=== PATIENT | male | born 1965 | race Two or more races ===

== ENCOUNTER 2025-01-26 10:28 | Outpatient (AMB) | payer MEDICARE, MEDICAID, SELFPAY ==
[2025-01-26 10:33] VITALS: BP 138/77; PULSE 52; O2SAT 97; BMI 34.6
--- NOTE | 2025-01-26 10:33 | A.OFFVIS_ITS ---
Vital Signs 01/26/25 10:33 Height 5 ft 10 in Weight 241 lb 6.499 oz BMI 34.6 BP 138/77 Blood Pressure Location Lt brachial Position Sitting Pulse 52 Pulse Source Doppler Pulse Oximetry (%) 97 Oxygen Delivery Method Room Air Intake Visit Reasons: Shortness of breath Business Operations Analyst Required: Yes Business Operations Analyst Name: Keila Jaylen Hdez Allergies No Known Allergies Allergy (Verified 01/26/25 10:41) HPI HPI Shortness of breath: Details: 59-year-old gentleman, former minimal smoker in his 20s quit 1988, referred for evaluation of pulmonary component of dyspnea on exertion. Patient complains shortness of breath when he climbs up stairs, but also waking up at night feeling out of breath needing to sit up associated with worsening lower extremity edema. He denies chest pains. Patient is also undergoing cardiac workup. He denies family history of lung disease. He denies exposure to industrial dusts. [facility] Social History (Updated 01/26/25 @ 10:47 by Keila Will [facility]) Patient Tobacco Use Status: Former Tobacco user Tobacco use type: Cigarette Review of Systems Const Denies daytime sleepiness, Denies excessive sweating, Denies fatigue, Denies fever(s), Denies lethargy, Denies malaise, Denies night sweats, Denies snoring and Denies weight loss Eyes Denies blurry vision and Denies itchy eyes ENT Denies nasal congestion, Denies post nasal drip, Denies sinus pain, Denies sinus pressure and Denies other ( Thrush) Card Denies chest pain, Reports pedal edema, Denies dyspnea, Reports dyspnea on exertion, Reports orthopnea and Reports paroxysmal nocturnal dyspnea Resp Denies cough, Denies hemoptysis, Denies excessive phlegm production, Denies dyspnea, Reports dyspnea on exertion, Denies snoring and Denies wheezing GI Denies abdominal pain and Denies heartburn Musc Denies myalgias, Denies arthralgias and Denies joint swelling Skin/Breast Denies rash Neuro Denies memory loss and Denies seizure-like activity Psych Denies abnormal sleep pattern, Denies anxiety and Denies memory loss Endo Denies excessive sweating, Denies fatigue and Denies heat intolerance Dinesh/Lymph Denies easy bruising Aller/Immun Denies itchy eyes, Denies seasonal rhinorrhea and Denies wheezing Physical Exam Vital Signs: Last Vital Signs Pulse 52 01/26/25 10:33 BP 138/77 01/26/25 10:33 Pulse Ox 97 01/26/25 10:33 Oxygen Delivery Method Room Air 01/26/25 10:33 BMI result Body Mass Index 34.6 Const General: no acute distress and alert Nutritional Appearance: obese Orientation/consciousness: Other orientation findings ( oriented) HEENT Head: Yes atraumatic Eyes General: appearance normal, both eyes and all related structures Sclerae: sclerae normal EOM: EOMs intact bilaterally Neck Neck: Yes supple Lymphatic: no lymphadenopathy noted Resp Effort & Inspection: normal respiratory effort and no use of accessory muscles Auscultation: clear to auscultation bilaterally Cardio Rate: regular rate Rhythm: regular rhythm Heart sounds: no gallops, no murmurs and no rubs Skin General skin exam: other ( warm) Extrem General: No clubbing, No cyanosis and Yes edema (1+ bilateral) Assessment & Plan Assessment & Plan (1) Dyspnea on exertion: Code(s): R06.09 - Other forms of dyspnea Category: Medical Plan: Unclear etiology, but appears to have mainly cardiac component. Patient is scheduled for 2D echocardiogram at [place] on 02/24/2025. Will await 2D echo results. Will obtain full PFT to evaluate pulmonary component. (2) Orthopnea: Code(s): R06.01 - Orthopnea Category: Medical Plan: Does appear to have significant orthopnea lower extremity edema, will start on empiric Lasix 40 mg daily. Orders: Orders PFT pulmonary function test Today R06.09 - Other forms of dyspnea Medications: New furosemide 40 mg PO QAM 30 tabs 6RF R06.09 - Other forms of dyspnea Coding Level of Care Code New Pt Level 4 (06029) Diagnoses Dyspnea on exertion R06.09 Orthopnea R06.01
--- OUTSIDE RECORDS SUMMARY | 2025-01-26 12:18 | XMS_ITS | Clinical Summary ---
Author Organization [facility] Address [address] [place] [address] Care Team Providers Care Newspaper Correspondent Name Role Phone Unavailable Primary Care Provider Unavailabl e Allergies Active Allergy Reactions Criticality Noted Date Comments Apixaban 07/02/2024 Medications Medication Sig Dispensed Refills Start Date End Date Status cyanocobalamin 500 MCG tablet Take 1 tablet (500 mcg total) by mouth daily. 0 Active lidocaine (LIDODERM) 5 % Place 1 patch onto the skin daily. Remove & Discard patch within 12 hours or as directed by MD 0 Active triamcinolone acetonide (KENALOG-40) 40 MG/ML injection Inject 1 mL (40 mg total) into the articular space once. 0 Active Cholecalciferol (Vitamin D) 50 MCG (2000 UT) CAPS Take by mouth. 0 Active amLODIPine (NORVASC) tablet 5 mg Take 1 tablet (5 mg total) by mouth daily. 0 Active escitalopram (LEXAPRO) tablet 10 mg Take 1 tablet (10 mg total) by mouth daily. 0 Active tiZANidine (ZANAFLEX) 4 MG tablet Take 1 tablet (4 mg total) by mouth every 6 (six) hours as needed. 0 Active Benadryl aqhr-Uopiev-Lvfpekat- Lidocaine Visc mouth wash 1:1:1:1 Swish and spit every 4 (four) hours as needed. 0 Active lisinopril-hydroCHLOR Othiazide (PRINZIDE,ZESTORETIC) tablet 20-25 mg Take 1 tablet by mouth daily. 0 Active cyclobenzaprine (FLEXERIL) 5 MG tablet Take 1 tablet (5 mg total) by mouth 3 (three) times a day as needed for muscle spasms. 0 Active Diclofenac Sodium 1 % GEL Apply topically. 0 Active pantoprazole (PROTONIX) 40 MG tablet Take 1 tablet (40 mg total) by mouth every morning on an empty stomach. 0 Active famotidine (PEPCID) 20 MG tablet Take 1 tablet (20 mg total) by mouth 2 (two) times a day. 0 Active celecoxib (CeleBREX) 200 MG capsule Take 1 capsule (200 mg total) by mouth daily. 0 Active clotrimazole-betameth asone (LOTRISONE) cream Apply topically 2 (two) times a day. 0 Active Social History Tobacco Use Types Packs/Day Years Used Date Smoking Tobacco: Never Assessed Sex and Gender Information Value Date Recorded Sex Assigned at Not on file Gender Identity Not on file Sexual Orientation Not on file Job Start Date Occupation Industry Not on file Not on file Not on file Last Filed Vital Signs Vital Sign Reading Time Taken Comments Blood Pressure 153/88 07/06/2024 11:00 AM EDT Pulse 64 07/06/2024 11:00 AM EDT Temperature 36.9 ??C (98.4 ??F) 07/06/2024 11:00 AM E DT Respiratory Rate - - Oxygen Saturation 95% 07/06/2024 11:00 AM EDT Inhaled Oxygen Concentration - - Weight 106.6 kg (235 lb) 07/06/2024 11:00 AM EDT Height 177.8 cm (5' 10 ) 07/06/2024 11:00 AM EDT Body Mass Index 33.72 07/06/2024 11:00 AM EDT Plan of Treatment Health Maintenance Due Date Last Done Comments Hepatitis C Screening 1964 COVID-19 Vaccine (#1) 02/18/1965 Depression Screening 1976 Preventative Health Evaluation 1982 DTap / Tdap / Td (1 - Tdap) 1983 Colon Cancer Screening (Colonoscopy) 2009 Shingrix-Zoster Vaccine (1 of 2) 2014 Influenza Vaccine (#1) 2024 RSV Adult > 60+ Yrs or Pregn ant (1 - 1-dose 75+ series) 2039 Hepatitis B Vaccines Aged Out No long er eligible based on patient's age to complete this topic Pneumococcal Vaccine Aged Out No long er eligible based on patient's age to complete this topic RSV Ped < 20 months Aged Out No longe r eligible based on patient's age to complete this topic
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
--- OUTSIDE RECORDS SUMMARY | 2025-01-26 12:18 | XMS_ITS | Encounter Summary ---
Author Organization [facility] Address [address] [place] [address] Care Team Providers Care Metal Mockup Maker Name Role Phone Bridgette Edward MD Primary Care Provider [phone] Reason for Visit * Therapy (Routine) - Authorized Specialty Diagnoses / Procedures Referred By Lorenza villeda Referred To Contact Physical Therapy Diagnoses Back pain Srini Jenkins MD 175 [facility] [address] [place] [address] Phone: tel: fax: [address] [address] Phone: tel: fax: Referral ID Status Reason Start Date Expiration Date Visits Requested Visits Authorized [id number] Authorized Specialty Services Required 09/07/2024 09/07/2025 20 6 Encounter Details Date Type Department Care Team (Late st Contact Info) Description 01/04/2025 10:30 AM EST Treatment [address] [address] Rosalva Jennings PT Bilateral hip pain (Primary Dx); Back pain, unspecified back location, unspecified back pain laterality, unspecified chronicity Social History Tobacco Use Types Packs/Day Years [...] AM EST documented as of this encounter Progress Notes * Rosalva Jennings PT - 01/04/2025 10:30 AM EST [facility] PHYSICAL THERAPY DISCHARGE NOTE Date: 01/04/2025 Visit Number: [id number] Patient Name: Jordan Phipps : 1965 Age: 59 y.o. Gender: male Diagnosis: ICD-10-CM ICD-9-CM 1. Bilateral hip pain M25.551 719.45 M25.552 2. Back pain, unspecified back location, unspecified back pain laterality, unspecified chronicity M54.9 724.5 Date of Onset: 09/15/2018 Date of Surgery: N/A Referring Provider: Srini Jenkins MD Insurance: Payor: MEDICARE / Plan: MEDICARE PART A & B / Product Type: Medicare / Patient Identified by: Rosalva Jennings PT Language: Speaks and understands Niuean as preferred language with no rolled seat trimmer required Medications: Current Outpatient Medications on File Prior to Visit Medication Sig Dispense Refill albuterol HFA (PROAIR HFA ; PROVENTIL HFA ; VENTOLIN HFA) 90 mcg/actuation inhaler Inhale 2 puffs by mouth every 4 (four) hours if needed for shortness of breath. 1 each 0 amLODIPine (NORVASC) 5 mg tablet TAKE 1 TABLET BY MOUTH EVERY DAY 90 tablet 1 celecoxib (CeleBREX) 200 mg capsule TAKE 1 CAPSULE BY MOUTH TWICE A DAY 60 capsule 1 cholecalciferol (VITAMIN D-3) 50 mcg (2,000 unit) tablet Take 1 Tablet by mouth daily. clotrimazole (LOTRIMIN) 1 % external solution Apply topically 2 (two) times a day. 30 mL 2 clotrimazole-betamethasone (LOTRISONE) 1-0.05 % cream APPLY LOCALLY TWICE A DAY cyanocobalamin (VITAMIN B-12) 500 mcg tablet TAKE 1 TABLET BY MOUTH EVERY DAY 90 tablet 3 cyclobenzaprine (FLEXERIL) 5 mg tablet Take 2 Tablets by mouth 3 times daily as needed for Muscle spasms. diclofenac (VOLTAREN) 1 % topical gel Apply 2 g topically 4 (four) times a day. 100 g 1 diphenhydrAMINE 12.5 mg/5 mL elixir 50 mg, aluminum-magnesium hydroxide- simethicone 400-400-40 mg/5mL suspension 20 mL, lidocaine 2 % solution 20 mL Swish and spit 10 mL every 4 hours as needed for Pain. Please mix the following in equal parts: MAALOX REGULAR STRENGTH 225-200-25 MG/5ML OR SUSP- 140cc LIDOCAINE VISCOUS 2 % MT SOLN - 140cc BENADRYL 12.5 MG/5ML OR ELIX - 140cc escitalopram (LEXAPRO) 10 mg tablet TAKE 1 TABLET BY MOUTH EVERY DAY IN THE MORNING famotidine (PEPCID) 20 mg tablet TAKE 1 TABLET BY MOUTH 2 TIMES DAILY NEEDED FOR HEARTBURN. 180 tablet 1 lisinopril-hydroCHLOROthiazide (PRINZIDE,ZESTORETIC) 20-25 mg per tablet Take 1 tablet by mouth 1 (one) time each day. 90 tablet 1 pantoprazole (PROTONIX) 40 mg EC tablet TAKE 1 TABLET BY MOUTH EVERY DAY potassium chloride (KLOR-CON) 10 mEq CR tablet TAKE 1 TABLET BY MOUTH EVERY DAY semaglutide (Wegovy) 0.25 mg/0.5 mL injection pen Inject 0.25 mg under the skin every 7 (seven) days. 4 mL 1 tiZANidine (ZANAFLEX) 4 mg tablet Take 2 Tablets by mouth at bedtime as needed for Muscle spasms. No current facility-administered medications on file prior to visit. Allergies: is allergic to apixaban. Precautions: Fall Risk: No SUBJECTIVE Subjective Report: Patient reports continued hip pain L>R. Pain since last re- eval is slightly worse. No real change in activity level this month. Increased pain possibly due to injections wearingoff. He is looking into different treatments like getting injections of his own cells into his hipsfor relief. This does cost a lot of money. He really wants to avoid hip surgery. Functional Limitations: Reported by Patient Last re-eval: limitations occasionally with walking, putting socks on, lifting weights, play grandkids Current: able to put socks on now without issue, walking distances still limited, has to be carefulwith turning/twisting Chart Reviewed: Yes Pain: Last re-eval: Current level of pain is rated a 7-8/10 left hip;Pain at worst over the past week is reported to be a 8/10 and at best is a 2/10 Current: Current level of pain 5-6/10; Pain at worst over the past week 6/10 and at best is a 0/10 OBJECTIVE Vitals: There were no vitals filed for this visit.; Gait: amb unassisted with mild antalgic pattern bilateral trendelenburg R>L, increased pelvic rotation on R (faster aguilar than initially) Palpation: tenderness anterior/lateral hip joint more on L HIP RANGE OF MOTION Right PROM Left PROM Comments Flexion (120 deg) 115 P >> 115 P 108 P>>105P Firm end feel and pain Extension (30 deg) NT NT Abduction (45 deg) 35 P>>32 P 35 P>>25 P Adduction (45 deg) NT NT External Rotation (45 deg) 45 P>>45 45>> 45 Internal Rotation (45 deg) 40 P>>40 P 35 P>> 35 P Hip Strength RIGHT LEFT COMMENTS Flexion 4+/5 >>4+/5 4+/5 >>4+/5 Extension NT/5 NT/5 Abduction 4+/5 >>4+/5 pain in left hip 4/5 P>> 4/5 P Adduction NT/5 NT/5 Internal Rotation 5/5 5/5 P External Rotation 4+/5>>5/5 5/5 TREATMENT INTERVENTION: Procedures: Nustep L5 x 6 min lower extremity See above objective measures Prone quad stretch strap (towel under knee) 3 x 30 sec Pain Reassessment: DISCHARGE SUMMARY ASSESSMENT: Reporting Period Start Date: 09/15/2024; End Date: 01/04/2025 Summary of Program/Progress to Date: Patient presents with bilateral hip pain L>R consistent with OA. He has attended about 3.5 months of PT. Since he first started PT, he did have good improvements in his pain, ROM, and strength. Since his last re-eval, no real change in symptoms and feels like pain is a little worse. He does havesome functional improvements, however. His hip ROM is about the same, slightly less on the left with abduction. His hip strength is about the same as well. Since his progress is at a plateau, he willbe discharged from formal PT. I encouraged him to continue his home exercise program to maintain his gains and also told him how weight loss can help. Patient Education: Education provided: continue home exercise program Education Provided To: Patient utilizing Explanation mode(s) of education Response to Education: Verbal Understanding GOALS LTG Improving First Mate Goals 1. Patient will be independent with home exercise program to maintain therapeutic gains.- MET 2. Patient will be able to walk with minimal to no pain.- PARTIALLY MET 3. Patient will be able to turn while standing or walking with minimal to no pain- NOT MET Senior Care Goals will be achieved in 8-12 weeks. STG Improving Short Term Goals 1. Initiate home exercise program.- MET 2. Pain will be improved by 2-3 points on VAS.- MET 3. Patient will improve hip strength by 1/3 grade on manual muscle testing.- MET 4. Patient will improve hip flexion ROM to 100 deg or more.- MET Short Term Goals will be achieved in 4 weeks. PLAN POC Development/Review: General Description as Follows: discharge to home exercise program : Participants: Patient Reasons Why Continued Therapy Is Not Recommended: No Skilled Therapy Required Recommended Consults: can check with hip specialist regarding other treatment options Equipment Recommended: none; Equipment Provided: none Total Treatment Time: 30 Modalities: Therapeutic procedures: Therapeutic Exercise Time Entry: 30 Documentation completed by Rosalva Jennings PT documented in this encounter Plan of Treatment Upcoming Encounters Date Type Department Care Team (Late st Contact Info) Description 02/24/2025 11:30 AM EDT Ancillary Procedure [facility] [address] [facility] [address] [place] [address] 03/29/2025 12:00 PM EDT Office Visit Internal Medicine - [place] 175 [facility] [address] [place] [address] Bridgette Edward MD 175 [facility] [address] [place] [phone] 05/05/2025 2:00 PM EDT Office Visit Bariatric Surgery - [place] [address] [place] [phone] Robert Mota MD [address] [place] [address] documented as of this encounter Goals Goal [...] PM EST) No Rosalva Jennings, PT Note: Senior Care Goals 1. Patient will be independent with home exercise program to maintain therapeutic gains.- NOT MET 2. Patient will be able to walk with minimal to no pain.- PARTIALLY MET 3. Patient will be able to turn while standing or walking with minimal to no pain- NOT MET Senior Care Goals will be achieved in 8-12 weeks. documented as of this encounter Visit Diagnoses Diagnosis Bilateral hip pain- Primary Pain in joint, pelvic region and thigh Back pain, unspecified back location, unspecified back pain laterality, unspecified chronicity documented in this encounter Care Teams Metal Mockup Maker Relationship Specialty Start Date End Date Bridgette Edward MD [facility] [place] [phone] PCP - General 12/11/22 documented as of this encounter
--- OUTSIDE RECORDS SUMMARY | 2025-01-26 12:18 | XMS_ITS | Encounter Summary ---
Author Organization [facility] Address [address] [place] [address] Care Team Providers Care Heat And Frost Insulator Helper Name Role Phone Bridgette Edward MD Primary Care Provider [phone] Reason for Visit * Therapy (Routine) - Authorized Specialty Diagnoses / Procedures Referred By Lorenza villeda Referred To Contact Physical Therapy Diagnoses Back pain Srini Jenkins MD 175 [facility] [address] [place] [address] Phone: tel: fax: [address] [address] Phone: tel: fax: Referral ID Status Reason Start Date Expiration Date Visits Requested Visits Authorized [id number] Authorized Specialty Services Required 09/07/2024 09/07/2025 20 6 Encounter Details Date Type Department Care Team (Late st Contact Info) Description 12/28/2024 10:30 AM EST Treatment [address] [address] Lowell Costa, SUPERVISOR SLATE SPLITTING Bilateral hip pain (Primary Dx) Social History Tobacco Use Types [...] as of this encounter Progress Notes * Lowell Costa PTA - 12/28/2024 10:30 AM EST [facility] - Outpatient PHYSICAL THERAPY DAILY TREATMENT NOTE - OP Date: 12/28/2024 Visit Number: 23 Patient Name: Jordan Phipps : 1965 Age: 59 y.o. Gender: male Diagnosis: ICD-10-CM ICD-9-CM 1. Bilateral hip pain M25.551 719.45 M25.552 Date of Onset/Surgery: 09/15/2018 Referring Provider: Srini Jenkins MD Insurance: Payor: MEDICARE / Plan: MEDICARE PART A & B / Product Type: Medicare / Patient Identified by: Lowell Costa PTA Language: Nigerian Medications: Current Outpatient Medications on File Prior [...] TAKE 1 TABLET BY MOUTH EVERY DAY tiZANidine (ZANAFLEX) 4 mg tablet Take 2 Tablets by mouth at bedtime as needed for Muscle spasms. [DISCONTINUED] celecoxib (CeleBREX) 200 mg capsule TAKE 1 CAPSULE BY MOUTH TWICE A DAY 60 capsule 1 [DISCONTINUED] lisinopril-hydroCHLOROthiazide (PRINZIDE,ZESTORETIC) 20-25 mg per tablet TAKE 1 TABLET BY MOUTH EVERY DAY No current facility-administered medications on file prior to visit. Allergies: is allergic to apixaban. Precautions: Fall risk: No Patient/Caregiver Goals: SUBJECTIVE Subjective Report: pt reports that his hips are very stiff today Chart Reviewed: Yes Pain 7/10 pain in both hips OBJECTIVE TREATMENT INTERVENTION: Nustep L5 x 6 min lower extremity Fig 4 Piriformis stretching 3 x 30 sec ea. Sidelying hip abduction 2 x 10 each 3 sec hold ea... not done today Supine bridge with blue theraband 2 x 10, 5 sec hold.. not done today Hip flexor stretch 3 x 20 sec hol (B) Lateral stepping with green tband x 3 10 feet each direction..not done today Shuttle squat 6 cords x 20...not done today Shuttle squats unilateral 5 cords 2 x 10 (B)..not done today (L) and (R) LE long axis distraction ASSESSMENT/Response to Treatment Fair. Some decrease in stiffness after distraction Patient Education: Education provided: Yes Education Provided To: Patient utilizing Explanation mode(s) of education Response to Education: Verbal Understanding PLAN POC Development/Review: No Change in the Plan of Care; Participants: Patient Total Treatment Time: 30 Man tech 15 Therapeutic procedures: 10 Documentation completed by Lowell Costa PTA documented in this encounter Plan of Treatment Upcoming Encounters Date Type Department Care Team (Late st Contact Info) Description 02/24/2025 11:30 AM EDT Ancillary Procedure [facility] - [address] [place] [address] 03/29/2025 12:00 PM EDT Office Visit Internal Medicine - [place] [address] [facility] [address] [place] [address] Bridgette Edward MD 175 [facility] 200 [place] [address] 05/05/2025 2:00 PM EDT Office Visit Bariatric Surgery - [place] 175 [facility] [address] [place] [address] Robert Mota MD 175 [facility] [address] [place] [address] documented as of this encounter Goals Goal [...] General Improving( 3:14 PM EST) No Rosalva Jennings PT Note: Screw Machine Operator Swiss Type Goals 1. Patient will be independent with home exercise program to maintain therapeutic gains.- NOT MET 2. Patient will be able to walk with minimal to no pain.- PARTIALLY MET 3. Patient will be able to turn while standing or walking with minimal to no pain- NOT MET Half-Way Goals will be achieved in 8-12 weeks. documented as of this encounter Visit Diagnoses Diagnosis Bilateral hip pain- Primary Pain in joint, pelvic region and thigh documented in this encounter Care Teams Heat And Frost Insulator Helper Relationship Specialty Start Date End Date Bridgette Edward MD [address] [place] [phone] PCP - General 12/11/22 documented as of this encounter
--- OUTSIDE RECORDS SUMMARY | 2025-01-26 12:18 | XMS_ITS | Clinical Summary ---
Author Organization [facility] Address [address] [place] [address] Care Team Providers Care Ribbon Sweatband Operator Name Role Phone Unavailable Primary Care Provider Unavailabl e Source Comments PLEASE NOTE, if this patient is a minor, it may be UNLAWFUL to discuss sensitive information that is contained in these records (such as FAMILY PLANNING, MENTAL HEALTH or SUBSTANCE ABUSE) with the minor patient's parent or other person without the patient's specific authorization.[facility] Allergies No known active allergies Medications TENS UNIT ELECTRODES (TENS UNITS ELECTRODES PADS) 2X2 Indications:Chr onic right-sided low back pain, with sciatica presence unspecified Dx: back pain. Wt: 252 lb, ht: 5'10 . Waist: 44 inches 1 Each 06/20/20 17 Active Miscellaneous Medical Supply miscIndications: Chronic right-sided low back pain, with sciatica presence unspecified by miscellaneous route once daily Dx: Chronic low back pain. Disp# one shower chair, no refills. Wt: 250 lb, ht 5'10 1 Each 06/20/20 17 Active loratadine (CLARITIN) 10 mg tabletIndication s:Allergy, initial encounter Take 1 Tab by mouth once daily as needed for allergies 30 Tab 5 06/20/20 17 Active fluticasone (FLONASE) 50 mcg/actuation nasal sprayIndications :Upper respiratory tract infection, unspecified type Place 1 [place] in both nostrils once daily 16 g 3 01/03/20 18 Active miscellaneous medical supply miscIndications: Essential hypertension by miscellaneous route once daily Dx: HTN. Digital portable blood pressure monitor machine, disp#1, no refills. 1 Each 03/05/20 18 Active melatonin 3 mg tabletIndication s:Insomnia, unspecified type Take 1 Tab by mouth nightly at bedtime as needed for sleep 30 Tab 5 07/21/20 18 Active raNITIdine HCl (ZANTAC) 150 mg tablet Take 1 Tab by mouth nightly at bedtime 30 Tab 11 07/21/20 18 Active clotrimazole-bet amethasone (LOTRISONE) 1-0.05 % creamIndications :Tinea pedis of both feet Apply topically 2 (two) times daily 45 g 3 10/07/20 18 Active hydrocortisone 2.5 % cream Apply topically 2 (two) times daily 30 g 3 10/07/20 18 Active buPROPion HCl (WELLBUTRIN XL) 150 mg 24 hr tablet TOME AGUS TABLETA TODOS LOS D? EN LA MA?CANDY 1 12/31/19 19 Active nabumetone (RELAFEN) 750 mg tabletIndication s:Chronic midline low back pain without sciatica Take 1 Tab by mouth 2 (two) times daily 60 Tab 11 01/06/20 19 Active hydrocortisone 1 % creamIndications :Hemorrhoids, unspecified hemorrhoid type Apply topically 2 (two) times daily 30 g 01/06/20 19 Active predniSONE (DELTASONE) 20 mg tabletIndication s:Acute midline low back pain without sciatica Take 1 Tab by mouth once daily 7 Tab 01/14/20 19 Active acetaminophen (TYLENOL 8 HOUR) 650 mg CR tabletIndication s:Acute midline low back pain without sciatica Take 1 Tab by mouth every 8 (eight) hours as needed for pain 60 Tab 1 01/14/20 19 Active lisinopril-hydro chlorothiazide (PRINZIDE,ZESTOR ETIC) 20-25 mg per tablet Take 1 Tab by mouth once daily 30 Tab 3 04/20/20 19 Active gemfibrozil (LOPID) 600 mg tablet Take 1 Tab by mouth 2 (two) times daily before a meal 60 Tab 3 05/10/20 19 Active Active Problems Problem Noted Date Diagnosed Date Allergic rhinitis 02/15/2019 High triglycerides 01/06/2019 Class 2 severe obesity due t o excess calories with serious comorbidity and body mass index (BMI) of 36.0 to 36.9 in adult ([facility]) 10/07/2018 Abnormal EKG 09/07/2018 PVC (premature ventricular contraction) 09/07/20 18 Bradycardia 09/07/2018 Left shoulder pain 04/28/2018 Overview (07/02/2018): Saw NEOE[facility]ie on 06-29-18 for left shoulder impingement syndrome with early adhesive capsulitis. Injection done. RTC in 3 months MRI done on 04-07-18 - shows motion degraded exam. Supraspinatus tendinopathy and mild tendinopathy of subscapularis with no evidence of rotator cuff tear. Moderate ac joint degenerative change. Numerous moles 07/21/2017 Essential hypertension 12/27/2016 Gastroesophageal reflux disease without esophagi tis 12/27/2016 Allergy 12/27/2016 Insomnia 12/27/2016 Anxiety and depression 12/27/2016 Tinea pedis of both feet 12/27/2016 IBS (irritable bowel syndrome) 12/27/2016 Hypothyroidism 12/27/2016 Chronic right-sided low back pain 12/27/2016 Acute midline low back pain without sciatica Family History Medical History Relation Name Comments Alzheimer's Disease Mother Relation Name Status Comments Mother Social History Tobacco Use Types Packs/Day Years Used Date Smoking Tobacco: Former Smokeless Tobacco: Former Alcohol Use Standard Drinks/Week Comments No 0 (1 standard drink = 0.6 oz pur e alcohol) Social Connections Answer Date Recorded Social Connections and Isolation 0 06/27/2019 Financial Resource Strain Answer Date R ecorded Financial Resource Strain 0 2018 Stress Answer Date Recorded Stress 0 06/27/2019 Physical Activity Answer Date Recorded Physical Activity 0 06/27/2019 Food Insecurity Answer Date Recorded Food 0 06/27/2019 Transportation Needs Answer Date Record ed Transportation 0 06/27/2019 Housing Stability Answer Date Recorded Housing 0 06/27/2019 Safety and Environment Answer Date Eladio rded Safety 0 06/27/2019 Utilities Answer Date Recorded Utilities 0 06/27/2019 Employment Answer Date Recorded Employment 0 06/27/2019 Sex and Gender Information Value Date Recorded Sex Assigned at Male 01/02/2018 12:04 PM PST Legal Sex Male 7:21 AM PST Gender Identity Male 01/02/2018 12:04 PM PST Sexual Orientation Straight 01/02/2018 12 :04 PM PST Occupation Industry Job Start Date Job End Date unemployed Not on file Not on file Not on file Last Filed Vital Signs Vital Sign Reading Time Taken Comments Blood Pressure 154/80 02/16/2019 2:17 PM EDT Pulse 60 02/16/2019 2:17 PM EDT Temperature 36.8 ??C (98.2 ??F) 02/16/2019 2:17 PM ED T Respiratory Rate 19 02/16/2019 2:17 PM EDT Oxygen Saturation 98% 10/07/2018 10:46 AM EST Inhaled Oxygen Concentration - - Weight 119.7 kg (264 lb) 02/16/2019 2:17 PM EDT Height 177.8 cm (5' 10 ) 01/13/2019 11:09 AM EDT Body Mass Index 37.88 01/13/2019 11:09 AM EDT Plan of Treatment Not on file Insurance [place] MEDICAID Member Subscriber Plan / Payer ( fective 2016-Present) Name:Jordan Ortega Relation to Subscriber:Self Name:JORDAN ORTEGA Payer ID:[id number] Group ID:Not on file Type:Medicaid Address: [facility] [id number] [place] [id number] [place] [address] Member Subscriber Plan / Payer (Ef fective 2019-Present) Name:Jordan Ortega Relation to Subscriber:Self Name:Jordan Ortega Payer ID:[id number] Group ID:Not on file Type:Indemnity Address: [address] [place] [address]
== END 2025-01-26 11:03 | disposition home or self-care (01) ==
LOC: HO.HPS 10:29
PROVIDERS: PCP Internal Medicine; Visit Provider Internal Medicine Pulmonary Disease
DX: R06.09 Other forms of dyspnea (principal)
CPT/HCPCS: 94060; 94727; 94729; 99204

== ENCOUNTER 2025-01-26 14:11 | Outpatient (REF) | payer MEDICARE, MEDICAID, SELFPAY ==
--- NOTE | 2025-01-26 14:00 | PFT_ITS ---
Indication: Dyspnea Spirometry [FEV1 to FVC 82%; FEV1 3.63 L; FVC 4.41 L. no significant response to bronchodilators noted.] Lung Volumes [Total capacity 80% predicted; expiratory reserve volume 31% predicted] Diffusion Capacity [DLCO 87% predicted] Comparisons [none] Interpretation [No obstructive nor restrictive ventilatory defects identified. No significant response to bronchodilators noted. Lung volumes are normal except for decrease in the expiratory reserve volume secondary to an elevated BMI. Diffusing capacity is within normal limits. Clinical correlation warranted.] MTDD
[2025-01-26 14:47] VITALS: PULSE 62; O2SAT 98
--- OUTSIDE RECORDS SUMMARY | 2025-01-26 17:06 | XMS_ITS | Encounter Summary ---
Author Organization [facility] Address [address] [place] [address] Care Team Providers Care Pantry Cook Name Role Phone China Reece PA-C Primary Care Provider + Bridgette Edward MD Primary Care Provider [phone] Reason for Visit * Reason Onset Date Comments TEST RESULTS 04/18/2022 Encounter Details Date Type Department Care Team Description 04/18/2022 Telephone Internal Medicine - [address], [address] [place] [address] China Reece PA-C [address] [place] [phone] TEST RESULTS Social History Tobacco Use Types Packs/Day Years Used Date Smoking Tobacco: Former Cigarettes Q uit: 11/03/1988 Smokeless Tobacco: Never Alcohol Use Standard Drinks/Week Comments No 0 (1 standard drink = 0.6 oz pur e alcohol) Alcohol Habits Answer Date Recorded How often do you have a drink containing alcohol ? Never 07/07/2020 How many drinks containing a lcohol do you have on a typical day when you are drinking? Not asked How often do you have six or more drinks on one occasion? Not asked Sex Assigned at Date Recorded Not on file Job Start Date Occupation Industry Not on file Not on file Not on file COVID-19 Exposure Response Date Recorded In the last 10 days, have yo u been in contact with someone who was confirmed or suspected to have Coronavirus/COVID-19? No / Unsure 04/08/2022 3:00 PM EDT documented as of this encounter Miscellaneous Notes * Telephone Encounter - Nasima Lopez M.A. - 04/19/2022 1:15 PM EDT I spoke with patient and informed him of the results. Also, informed him to stop the anticoagulant Xarelto 20 mg and booked patient for a physical exam for 08/05/2022 * Telephone Encounter - China Reece PA-C - 04/18/2022 3:35 PM EDT Ultrasound left leg done 04/09/2022 no evidence of DVT or reflux in the left lower extremity. This was ordered via vascular Dr. Molina. At this time I think it is safe for him to stop anticoagulantXarelto 20 mg daily once his prescription runs out. Thank you. * Telephone Encounter - Nasima Lopez M.A. - 04/18/2022 1:51 PM EDT China, please add result note * Telephone Encounter - Aspen Marie - 04/18/2022 10:51 AM EDT Inform patient: ANY URGENT OR ABNORMAL RESULTS WIILL RESULT IN A CALL BACK TO THE PATIENT BETI. Type of test: : Ultrasound Date test was performed: 04-09-22 Where was the test performed: [facility] Who ordered this test?: China Reece Is the doctor here today?: YES Can the message wait until the doctor returns?: NO IF PATIENT'S PCP IS NOT IN INSTRUCT PATIENT THAT THEY WILL RECEIVE A CALL BACK WHEN THE PCP IS IN THE OFFICE NEXT. documented in this encounter Plan of Treatment Not on file documented as of this encounter Visit Diagnoses Not on filedocumented in this encounter Care Teams Pantry Cook Relationship Specialty Start Date End Date China Reece PA-C [address] [place] [phone] PCP - General Internal Medicine 06/02/20 12/10/22 Bridgette Edward MD [address] [place] [phone] PCP - General Internal Medicine 12/11/22 documented as of this encounter
--- OUTSIDE RECORDS SUMMARY | 2025-01-26 17:06 | XMS_ITS | Encounter Summary ---
Author Organization [facility] Address [address] [place] [address] Care Team Providers Care Correctional Probation Officer Name Role Phone Grabiel Leonardo MD Primary Care Provider [phone] China Reece PA-C Primary Care Provider + Bridgette Edward MD Primary Care Provider [phone] Encounter Details Date Type Department Care Team Description 03/31/2019 Walk In Clinic Visit Medical Records [address] [place] [address] Social History Tobacco Use Types Packs/Day Years Used Date Smoking Tobacco: Former Smokeless Tobacco: Never Alcohol Habits Answer Date Recorded How often [...] file Not on file Not on file documented as of this encounter Plan of Treatment Not on file documented as of this encounter Visit Diagnoses Not on filedocumented in this encounter Care Teams Correctional Probation Officer Relationship Specialty Start Date End Date Grabiel Leonardo MD PCP - General Internal Medicine 12/11/18 06/01/20 China Reece PA-C [address] [place] [phone] PCP - General Internal Medicine 06/02/20 12/10/22 Bridgette Edward MD [address] [place] [phone] PCP - General Internal Medicine 12/11/22 documented as of this encounter
--- OUTSIDE RECORDS SUMMARY | 2025-01-26 17:06 | XMS_ITS | Encounter Summary ---
Author Organization [facility] Address [address] [place] [address] Care Team Providers Care Restaurant Worker Name Role Phone Grabiel Leonardo MD Primary Care Provider [phone] China Reece PA-C Primary Care Provider + Bridgette Edward MD Primary Care Provider [phone] Reason for Visit * Reason Onset Date Comments Provider Call Back 11/23/2019 Encounter Details Date Type Department Care Team Description 11/23/2019 Telephone Internal Medicine - [address], [address] [place], [place] [id number] Bridgette Edward MD [address] [place] [phone] Provider Call Back Social History Tobacco Use Types Packs/Day Years [...] on file documented as of this encounter Miscellaneous Notes * Telephone Encounter - Leydi Munguia M.A. - 11/26/2019 11:43 AM EST Left a voicemail for patient to call back the office * Telephone Encounter - Bridgette Edward MD - 11/26/2019 4:12 AM EST It was a mistake, ask him to ignore * Telephone Encounter - Humaira Lopez M.A. - 11/24/2019 9:11 AM EST Please advise * Telephone Encounter - Ade Bai - 11/23/2019 11:13 AM EST Patient states Dr Edward ordered another pet scan he wants to know why Please call patient documented in this encounter Plan of Treatment Not on file documented as of this encounter Visit Diagnoses Not on filedocumented in this encounter Care Teams Restaurant Worker Relationship Specialty Start Date End Date Grabiel Leonardo MD PCP - General Internal Medicine 12/11/18 06/01/20 hCina Reece PA-C [address] [place] [phone] PCP - General Internal Medicine 06/02/20 12/10/22 Bridgette Edward MD [address] [place] [phone] PCP - General Internal Medicine 12/11/22 documented as of this encounter
--- OUTSIDE RECORDS SUMMARY | 2025-01-26 17:06 | XMS_ITS | Encounter Summary ---
Author Organization [facility] Address [address] [place] [address] Care Team Providers Care Signal Operator Name Role Phone Grabiel Leonardo MD Primary Care Provider [phone] China Reece PA-C Primary Care Provider + Bridgette Edward MD Primary Care Provider [phone] Encounter Details Date Type Department Care Team Description 12/24/2019 Release of Information Medical Records [address] [place] [address] Abstract, Provider Social History Tobacco Use Types Packs/Day Years [...] on filedocumented in this encounter Care Teams Signal Operator Relationship Specialty Start Date End Date Grabiel Leonardo MD PCP - General Internal Medicine 12/11/18 06/01/20 China Reece PA-C [address] [place] [phone] PCP - General Internal Medicine 06/02/20 12/10/22 Bridgette Edward MD [address] [place] [phone] PCP - General Internal Medicine 12/11/22 documented as of this encounter
--- OUTSIDE RECORDS SUMMARY | 2025-01-26 17:06 | XMS_ITS | Encounter Summary ---
Author Organization [facility] Address [address] [place] [address] Care Team Providers Care Aquaculturist Name Role Phone Graibel Lenoardo MD Primary Care Provider [phone] China Reece PA-C Primary Care Provider + Bridgette Edward MD Primary Care Provider [phone] Encounter Details Date Type Department Care Team Description 11/19/2019 Telephone Internal Medicine - [address], [address] [place] [address] Grabiel Leonardo MD [address] [place] [address] Social History Tobacco Use Types Packs/Day Years [...] encounter Miscellaneous Notes * Telephone Encounter - Humaira Lopez M.A. - 11/19/2019 12:56 PM EST ----- Message from Bridgette Edward MD sent at 11/19/2019 11:47 AM EST ----- PET scan is normal documented in this encounter Plan of Treatment Not on file documented as of this encounter Visit Diagnoses Not on filedocumented in this encounter Care Teams Aquaculturist Relationship Specialty Start Date End Date Grabiel Leonardo MD PCP - General Internal Medicine 12/11/18 06/01/20 China Reece PA-C [address] [place] [phone] PCP - General Internal Medicine 06/02/20 12/10/22 Bridgette Edward MD [address] [place] [phone] PCP - General Internal Medicine 12/11/22 documented as of this encounter
--- OUTSIDE RECORDS SUMMARY | 2025-01-26 17:06 | XMS_ITS | Encounter Summary ---
Author Organization [facility] Address [address] [place] [address] Care Team Providers Care French Folder Name Role Phone China Reece PA-C Primary Care Provider + Bridgette Edward MD Primary Care Provider [phone] Reason for Visit * Reason Comments E-prescribe Rx Request Encounter Details Date Type Department Care Team Description 03/27/2022 Refill Internal Medicine - [address], [address] [place] [address] China Reece PA-C [address] [place] [phone] E-prescribe Rx Request Social History Tobacco Use Types Packs/Day Years [...] encounter Miscellaneous Notes * Telephone Encounter - Anette Nowak M.A. - 03/28/2022 12:18 PM EDT BP Readings from Last 3 Encounters: 12/14/21 120/82 12/01/21 122/80 04/24/21 134/80 Lab Results Component Value Date NA 143 02/20/2022 K 3.5 02/20/2022 CO2 29 02/20/2022 CL 107 02/20/2022 BUN 19 02/20/2022 CREAT 0.93 02/20/2022 GLU 101 02/20/2022 ALB 3.6 02/20/2022 SGOT 22 02/20/2022 SGPT 20 02/20/2022 TBILI 0.6 02/20/2022 ALKPHOS 87 02/20/2022 TP 6.4 02/20/2022 CA 9.4 02/20/2022 GFR > 60 02/20/2022 * Telephone Encounter - Aminata Frey - 03/27/2022 8:45 AM EDT BALDEMAR 12/14/21 NOV 04/08/22 documented in this encounter Plan of Treatment Not on file documented as of this encounter Visit Diagnoses Diagnosis Essential hypertension Unspecified essential hypertension documented in this encounter Care Teams French Folder Relationship Specialty Start Date End Date China Reece PA-C [address] [place] [phone] PCP - General Internal Medicine 06/02/20 12/10/22 Bridgette Edward MD [address] [place] [phone] PCP - General Internal Medicine 12/11/22 documented as of this encounter
--- OUTSIDE RECORDS SUMMARY | 2025-01-26 17:06 | XMS_ITS | Clinical Summary ---
Author Organization [facility] Address [address] [place] [address] Care Team Providers Care Protective Signal Repairer Name Role Phone Unavailable Primary Care Provider [...] respiratory tract infection, unspecified type Place 1 [place]atte in both nostrils once daily 16 g [...] (BMI) of 36.0 to 36.9 in adult ([facility]) 10/07/2018 Abnormal EKG 09/07/2018 PVC (premature ventricular [...] Plan of Treatment Not on file Insurance [place] MEDICAID Member Subscriber Plan / Payer ( fective 2016-Present) Name:Jordan Ortega Relation to Subscriber:Self Name:JORDAN ORTEGA Payer ID:[id number] Group ID:Not on file Type:Medicaid Address: [facility] [id number] [place] [id number] [place] [address] Member Subscriber Plan / Payer (Ef fective 2019-Present) Name:Jordan Ortega Relation to Subscriber:Self Name:Jordan Ortega Payer ID:[id number] Group ID:Not on file Type:Indemnity Address: [address] [place] [address]
--- OUTSIDE RECORDS SUMMARY | 2025-01-26 17:06 | XMS_ITS | Encounter Summary ---
Author Organization [facility] Address [address] [place] [address] Care Team Providers Care General Operator Name Role Phone Grabiel Leonardo MD Primary Care Provider [phone] China Reece PA-C Primary Care Provider + Bridgette Edward MD Primary Care Provider [phone] Encounter Details Date Type Department Care Team Description 08/10/2019 Telephone Internal Medicine - [address], [address] [place] [address] Grabiel Leonardo MD [address] [place] [address] Social History Tobacco Use Types Packs/Day Years [...] on filedocumented in this encounter Care Teams General Operator Relationship Specialty Start Date End Date Grabiel Leonardo MD PCP - General Internal Medicine 12/11/18 06/01/20 China Reece PA-C [address] [place] [phone] PCP - General Internal Medicine 06/02/20 12/10/22 Bridgette Edward MD [address] [place] [phone] PCP - General Internal Medicine 12/11/22 documented as of this encounter
--- OUTSIDE RECORDS SUMMARY | 2025-01-26 17:06 | XMS_ITS | Encounter Summary ---
Author Organization [facility] Address [address] [place] [address] Care Team Providers Care Actuary Name Role Phone China Reece PA-C Primary Care Provider + Bridgette Edward MD Primary Care Provider [phone] Reason for Visit * Reason Comments E-prescribe Rx Request Encounter Details Date Type Department Care Team Description 05/09/2022 Refill Internal Medicine - [address], [address] [place] [address] China Reece PA-C [address] [place] [phone] E-prescribe Rx Request Social History Tobacco [...] encounter Miscellaneous Notes * Telephone Encounter - Carmine Gonzalez M.A. - 05/10/2022 9:48 AM EDT Rx last filled on 04/08/22 w/ 0 refills rx pended fwd to china * Telephone Encounter - Aminata Frey - 05/10/2022 9:47 AM EDT Flor 04/08/22 Nov 08/05/22 documented in this encounter Plan of Treatment Not on file documented as of this encounter Visit Diagnoses Diagnosis Chronic bilateral low back pain with bilateral sciatica documented in this encounter Care Teams Actuary Relationship Specialty Start Date End Date China Reece PA-C [address] [place] [phone] PCP - General Internal Medicine 06/02/20 12/10/22 Bridgette Edward MD [address] [place] [phone] PCP - General Internal Medicine 12/11/22 documented as of this encounter
--- OUTSIDE RECORDS SUMMARY | 2025-01-26 17:06 | XMS_ITS | Clinical Summary ---
Author Organization [facility] Address [address] [place] [address] Care Team Providers Care Concrete Inspector Name Role Phone Bridgette Edward MD Primary Care Provider [phone] Allergies Active Allergy Reactions Severity Noted Date Comments Apixaban Diarrhea 06/23/2023 Medications Medication Sig Dispensed Refills Start Date End Date Status Cholecalciferol (Vitamin D) 50 MCG (1999) CapIndications:Vitami n D insufficiency Take 1 Capsule by mouth daily. 90 Capsule 3 04/08/2022 Active escitalopram (LEXAPRO) 10 MG tablet TAKE 1 TABLET BY MOUTH EVERY DAY IN THE MORNING 0 06/04/2022 Active Mix equal parts:MAALOX SUSP/LIDOCAINE VISCOUS 2 % MT SOLN/BENADRYL 12.5MG/5ML Swish and spit 10 mL every 4 hours as needed for Pain. Please mix the following in equal parts: MAALOX REGULAR STRENGTH 225-200-25 MG/5ML OR SUSP- 140cc LIDOCAINE VISCOUS 2 % MT SOLN - 140cc BENADRYL 12.5 MG/5ML OR ELIX - 140cc 420 mL 0 08/19/2022 Active Cholecalciferol (Vitamin D) 50 MCG (1999) Tab Take 1 Tablet by mouth daily. 90 Tablet 3 08/10/2023 Active vitamin B-12 (CYANOCOBALAMIN) 500 MCG tablet Take 1 Tablet by mouth daily for 360 days. 90 Tablet 3 11/19/2023 Active pantoprazole (PROTONIX) 40 MG tablet TAKE 1 TABLET BY MOUTH EVERY DAY 90 Tablet 1 01/13/2024 Active potassium chloride SA (K-DUR,KLOR-CON) 10 MEQ tablet TAKE 1 TABLET BY MOUTH EVERY DAY 90 Tablet 1 02/18/2024 Active Diclofenac Sodium 1 % Gel APPLY 2 GMS TOPICALLY 4 TIMES A DAY NEEDED FOR LEFT ELBOW PAIN. 100 g 1 03/17/2024 Active triamcinolone acetonide (KENALOG-40) 40 MG/ML injection Inject 1 mL into the articular space once for 1 dose. 1 mL 0 03/19/2024 Active clotrimazole-betameth asone (LOTRISONE) cream APPLY LOCALLY TWICE A DAY 30 g 0 04/12/2024 Active cyclobenzaprine (FLEXERIL) 5 MG tabletIndications:Mus trina strain Take 2 Tablets by mouth 3 times daily as needed for Muscle spasms. 20 Each 0 04/20/2024 Active lidocaine (LIDODERM) 5 %Indications:Bilatera l hip pain,Muscle strain Place 1 Patch onto the skin every 24 hours for 28 days. Apply for no more than 12 hours in any 24 hour period. 28 Patch 3 04/20/2024 Active famotidine (PEPCID) 20 MG tabletIndications:Gas troesophageal reflux disease without esophagitis TAKE 1 TABLET BY MOUTH 2 TIMES DAILY NEEDED FOR HEARTBURN. 60 Tablet 5 05/11/2024 Active celecoxib (CELEBREX) 200 MG capsule TAKE 1 CAPSULE BY MOUTH TWICE A DAY 60 Capsule 1 06/24/2024 Active lisinopril-hydrochlor othiazide (PRINZIDE,ZESTORETIC) 20-25 MG per tabletIndications:Ess ential hypertension TAKE 1 TABLET BY MOUTH EVERY DAY 90 Tablet 1 07/02/2024 Active amlodipine (NORVASC) 5 MG tabletIndications:Ess ential hypertension TAKE 1 TABLET BY MOUTH EVERY DAY 90 Tablet 1 07/07/2024 Active tizanidine (ZANAFLEX) 4 MG tabletIndications:Chr onic bilateral low back pain with bilateral sciatica Take 2 Tablets by mouth at bedtime as needed for Muscle spasms. 180 Tablet 5 08/04/2024 Active Active Problems Problem Noted Date Primary osteoarthritis of right hip 06/04 Primary osteoarthritis of left hip 06/23 History of deep venous throm bosis (DVT) of distal vein of left lower extremity 06/23/2023 Bilateral hip joint arthritis 07/04/2022 Hematuria 04/24/2021 Cervical radiculopathy 12/06/2020 Degenerative disc disease, cervical 01/2021 Cervical spinal stenosis 12/06/2020 Allergic rhinitis 02/15/2019 Class 2 obesity with body mass index (BM I) of 35.0 to 35.9 in adult 10/07/2018 Bradycardia 09/07/2018 PVC (premature ventricular contraction) 09/07/2018 Left shoulder pain 04/28/2018 Overview: Overview: Saw [facility] on 06-29-18 for left shoulder impingement syndrome with early adhesive capsulitis. Injection done. RTC in 3 months MRI done on 04-07-18 - shows motion degraded exam. Supraspinatus tendinopathy and mild tendinopathy of subscapularis with no evidence of rotator cuff tear. Moderate ac joint degenerative change. Numerous moles 07/21/2017 Anxiety and depression 12/27/2016 Essential hypertension 12/27/2016 Gastroesophageal reflux disease without esophagitis 12/27/2016 IBS (irritable bowel syndrome) 7 Insomnia 12/27/2016 Chronic right-sided low back pain 2016 Tinea pedis of both feet 12/27/2016 Resolved Problems Problem Noted Date Resolved Date Hypothyroidism 12/27/2016 02/15/2019 Hypothyroidism 12/27/2016 07/07/2020 Family History Medical History Relation Name Comments CAD Father Alzheimers Disease Mother Abnormal Heartbeat Sister Relation Name Status Comments Father (Age 81) Mother (Age 75) Sister Alive Social History Tobacco Use Types Packs/Day Years Used Date Smoking Tobacco: Former Cigarettes Q uit: 11/03/1988 Smokeless Tobacco: Never Tobacco Cessation:Counseling Given: Not Answered Alcohol Use Standard Drinks/Week Comments No 0 [...] Sign Reading Time Taken Comments Blood Pressure 174/92 08/04/2024 8:07 AM EDT Pulse 41 08/04/2024 8:07 AM EDT Temperature 36 ??C (96.8 ??F) 08/04/2024 8:07 AM EDT Respiratory Rate 15 08/18/2023 1:14 PM EDT Oxygen Saturation 98% 08/04/2024 8:07 AM EDT Inhaled Oxygen Concentration - - Weight 106.1 kg (233 lb 12.8 oz) 08/04/2024 8:07 AM EDT Height 177.8 cm (5' 10 ) 08/04/2024 8:07 AM EDT Body Mass Index 33.55 08/04/2024 8:07 AM EDT Plan of Treatment Health Maintenance Due Date Last Done Comments Covid-19 Vaccine (#1) [birth year]18/1966 DTAP/TDAP/TD (1 - Tdap) 1983 COLON CANCER SCREENING 2014 SHINGLES VACCINE (1 of 2) 2014 DEPRESSION SCREEN 05/12/2024 05/12/2023 INFLUENZA (#1) 2024 BMI CHECK/ADVISE 11/03/2024 08/04/2024, , 03/22/2024, Additional history exists BASELINE HEALTH EXAM 40-64 08/04/202608/04, 08/08/2023, 05/12/2023, Additional history exists CHOLESTEROL SCREENING 08/04/2029 08/04/2024 , 11/20/2023, 08/08/2023, Additional history exists PNEUMOCOCCAL VACCINE FOR HIG H RISK PATIENTS (#1) 2029 HEPATITIS C SCREENING Completed 08/04/2024 Care Teams Concrete Inspector Relationship Specialty Start Date End Date Bridgette Edward MD PCP - General Internal Medicine 12/11/22
--- OUTSIDE RECORDS SUMMARY | 2025-01-26 17:06 | XMS_ITS | Encounter Summary ---
Author Organization [facility] Address [address] [place] [address] Care Team Providers Care Wad Blanking Press Adjuster Name Role Phone China Reece PA-C Primary Care Provider + Bridgette Edward MD Primary Care Provider [phone] Reason for Visit * Reason Onset Date Comments refill request 04/04/2022 Encounter Details Date Type Department Care Team Description 04/04/2022 Refill Pulmonology - [place] [address] [facility] [address] [place] [phone] China Reece PA-C [address] [place] [phone] refill request Social History Tobacco Use Types Packs/Day Years [...] encounter Miscellaneous Notes * Telephone Encounter - Deonna Lopez - 04/04/2022 2:02 PM EDT BP Readings from Last 3 Encounters: 12/14/21 120/82 10/03/21 122/80 04/24/21 134/80 * Telephone Encounter - Martha Yoo - 04/04/2022 9:35 AM EDT BALDEMAR 12/14/21 NOV 04/08/22 documented in this encounter Plan of Treatment Not on file documented as of this encounter Visit Diagnoses Diagnosis Chronic bilateral low back pain with bilateral sciatica documented in this encounter Care Teams Wad Blanking Press Adjuster Relationship Specialty Start Date End Date China Reece PA-C [address] [place] [phone] PCP - General Internal Medicine 06/02/20 12/10/22 Bridgette Edward MD [address] [place] [phone] PCP - General Internal Medicine 12/11/22 documented as of this encounter
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
--- OUTSIDE RECORDS SUMMARY | 2025-01-26 17:06 | XMS_ITS | Encounter Summary ---
Author Organization [facility] [address] Address [address] [place] [address] Care Team Providers Care Grades 1 Thru 5 Teacher Name Role Phone Bridgette Edward MD Primary Care Provider [phone] Reason for Visit * Therapy (Routine) - Authorized Specialty Diagnoses / Procedures Referred By Lorenza villeda Referred To Contact Physical Therapy Diagnoses Back pain Srini Jenkins MD 175 [facility] [address] [place] [address] Phone: tel: fax: [address] [address] Phone: tel: fax: Referral ID Status Reason Start Date Expiration Date Visits Requested Visits Authorized [id number] Authorized Specialty Services Required 09/07/2024 09/07/2025 20 6 Encounter Details Date Type Department Care Team (Late st Contact Info) Description 01/04/2025 10:30 AM EST Treatment [address] [address] Rosalva Jennings PT Bilateral hip [...] Jennings PT - 01/04/2025 10:30 AM EST [facility] PHYSICAL THERAPY DISCHARGE NOTE Date: 01/04/2025 Visit [...] Rosalva Jennings PT Language: Speaks and understands Venezuelan as preferred language with no aerial photograph interpreter required Medications: Current Outpatient Medications on File [...] to Education: Verbal Understanding GOALS LTG Improving Paraffin Plant Sweater Operator Goals 1. Patient will be independent with home exercise program to maintain therapeutic gains.- MET 2. Patient will be able to walk with minimal to no pain.- PARTIALLY MET 3. Patient will be able to turn while standing or walking with minimal to no pain- NOT MET Nursing Home Goals will be achieved in 8-12 weeks. [...] Description 02/24/2025 11:30 AM EDT Ancillary Procedure [facility] - [facility] [address] [facility] [address] [place] [address] 03/29/2025 12:00 PM EDT Office Visit Internal Medicine - [place] 175 [facility] [address] [place] [address] Bridgette Edward MD 175 [facility] [address] [place] [phone] 05/05/2025 2:00 PM EDT Office Visit Bariatric Surgery - [place] [address] [place] [phone] Robert Mota MD [address] [place] [address] documented as of this encounter Goals Goal [...] PM EST) No Rosalva Jennings, PT Note: Nursing Home Goals 1. Patient will be independent with home exercise program to maintain therapeutic gains.- NOT MET 2. Patient will be able to walk with minimal to no pain.- PARTIALLY MET 3. Patient will be able to turn while standing or walking with minimal to no pain- NOT MET Nursing Home Goals will be achieved in 8-12 weeks. documented as of this encounter Visit Diagnoses Diagnosis Bilateral hip pain- Primary Pain in joint, pelvic region and thigh Back pain, unspecified back location, unspecified back pain laterality, unspecified chronicity documented in this encounter Care Teams Grades 1 Thru 5 Teacher Relationship Specialty Start Date End Date Bridgette Edward MD [facility] [address] [place] [phone] PCP - General 12/11/22 documented as of this encounter
--- OUTSIDE RECORDS SUMMARY | 2025-01-26 17:06 | XMS_ITS | Encounter Summary ---
Author Organization [facility] Address [address] [place] [address] Care Team Providers Care Ultrasound Supervisor Name Role Phone Grabiel Leonardo MD Primary Care Provider [phone] China Reece PA-C Primary Care Provider + Bridgette Edward MD Primary Care Provider [phone] Reason for Visit * Reason Comments E-prescribe Rx Request Encounter Details Date Type Department Care Team Description 06/01/2020 Refill Internal Medicine - [address], [address] [place] [address] Grabiel Leonardo MD [address] [place] [address] E-prescribe Rx Request Social History Tobacco Use [...] encounter Miscellaneous Notes * Telephone Encounter - Lety Alaniz M.A. - 06/01/2020 3:21 PM EDT Lab Results Component Value Date NA 145 02/02/2020 K 3.6 02/02/2020 CO2 28 02/02/2020 CL 110 02/02/2020 BUN 18 02/02/2020 CREAT 0.85 02/02/2020 GLU 101 02/02/2020 ALB 3.1 02/02/2020 SGOT 25 02/02/2020 SGPT 17 02/02/2020 TBILI 0.9 02/02/2020 ALKPHOS 64 02/02/2020 TP 6.1 02/02/2020 CA 8.7 02/02/2020 GFR > 60 02/02/2020 BP Readings from Last 5 Encounters: 04/05/20 136/80 03/17/20 128/80 02/03/20 (!) 154/82 01/12/20 120/62 12/15/19 110/70 Last refill 12/03/19.map * Telephone Encounter - Edwina Miller - 06/01/2020 2:39 PM EDT Patient would like script to be: E-PRESCRIBED/FAXED TO PHARMACY WHEN WAS THE PATIENT'S LAST APPOINTMENT IN ADULT MEDICINE? 05/25/20 WHEN WAS THE LAST TIME THE PATIENT SAW THEIR PCP? Same as above Does patient have an upcoming appointment? Yes 08/11/20 (THE MEDICATION REQUESTED IS ON THE MED LIST ABOVE) All of the medications requested were on the CURRENT MEDS list Did you check the Pharmacy information above?: YES Patient wants: 90 -day supply Is this a mail order prescription request ? NO If the refill is from a FAXED refill request what is the RX # listed on the fax? N/A Patients current insurance carrier is: [place] / [place] / Product Type: [place]ARE [id number] documented in this encounter Plan of Treatment Not on file documented as of this encounter Visit Diagnoses Not on filedocumented in this encounter Care Teams Ultrasound Supervisor Relationship Specialty Start Date End Date Grabiel Leonardo MD PCP - General Internal Medicine 12/11/18 06/01/20 China Reece PA-C [address] [place] [address] PCP - General Internal Medicine 06/02/20 12/10/22 Bridgette Edward MD [address] [place] [address] PCP - General Internal Medicine 12/11/22 documented as of this encounter
--- OUTSIDE RECORDS SUMMARY | 2025-01-26 17:06 | XMS_ITS | Encounter Summary ---
Author Organization [facility] Address [address] [place] [address] Care Team Providers Care Donor Processor Name Role Phone China Reece PA-C Primary Care Provider + Bridgette Edward MD Primary Care Provider [phone] Encounter Details Date Type Department Care Team Description 02/15/2021 Transmission Technician Report Medical Records [address] [place] [address] Talat Thomas PA-C 175 [facility] [address] [place] [address] Social History Tobacco Use Types Packs/Day Years [...] Exposure Response Date Recorded In the last month, have you been in contact with someone who was confirmed or suspected to have Coronavirus / COVID-19? No / Unsure 01/30/2021 12:35 PM EDT documented as of this encounter Plan of Treatment Not on file documented as of this encounter Visit Diagnoses Not on filedocumented in this encounter Care Teams Donor Processor Relationship Specialty Start Date End Date China Reece PA-C [address] [place] [phone] PCP - General Internal Medicine 06/02/20 12/10/22 Bridgette Edward MD [address] [place] [address] PCP - General Internal Medicine 12/11/22 documented as of this encounter
--- OUTSIDE RECORDS SUMMARY | 2025-01-26 17:06 | XMS_ITS | Encounter Summary ---
Author Organization [facility] Address [address] [place] [address] Care Team Providers Care Celluloid Trimmer Name Role Phone Grabiel Leonardo MD Primary Care Provider [phone] China Reece PA-C Primary Care Provider + Bridgette Edward MD Primary Care Provider [phone] Encounter Details Date Type Department Care Team Description 12/29/2018 Release of Information Medical Records [address] [place] [address] Abstract, Provider Social History Tobacco Use Types [...] on filedocumented in this encounter Care Teams Celluloid Trimmer Relationship Specialty Start Date End Date Grabiel Leonardo MD PCP - General Internal Medicine 12/11/18 06/01/20 China Reece PA-C [address] [place] [phone] PCP - General Internal Medicine 06/02/20 12/10/22 Bridgette Edward MD [address] [place] [phone] PCP - General Internal Medicine 12/11/22 documented as of this encounter
--- OUTSIDE RECORDS SUMMARY | 2025-01-26 17:06 | XMS_ITS | Encounter Summary ---
Author Organization [facility] Address [address] [place] [address] Care Team Providers Care Design Quality Engineer Name Role Phone Grabiel Leonardo MD Primary Care Provider [phone] China Reece PA-C Primary Care Provider + Bridgette Edward MD Primary Care Provider [phone] Reason for Visit * Reason Comments E-prescribe Rx Request Encounter Details Date Type Department Care Team Description 03/25/2020 Refill Internal Medicine - [address], [address] [place], [place] [address] Bridgette Edward MD [address] [place] [phone] E-prescribe Rx Request Social History Tobacco [...] encounter Miscellaneous Notes * Telephone Encounter - Tiara SawyerP.NJudit - 03/29/2020 3:11 PM EDT Lab Results Component Value Date NA 145 02/02/2020 K 3.6 02/02/2020 CO2 28 02/02/2020 CL 110 02/02/2020 BUN 18 02/02/2020 CREAT 0.85 02/02/2020 GLU 101 02/02/2020 CA 8.7 02/02/2020 GFR > 60 02/02/2020 * Telephone Encounter - Katty Clifford - 03/29/2020 12:35 PM EDT Patient would like script to be: E-PRESCRIBED/FAXED TO PHARMACY WHEN WAS THE PATIENT'S LAST APPOINTMENT IN ADULT MEDICINE? 02.28.2020 WHEN WAS THE LAST TIME THE PATIENT SAW THEIR PCP? Same as above Does patient have an upcoming appointment? No-no answer, no voicemail documented x2 (Please verify telephone contact #'s at next phone call) (THE MEDICATION REQUESTED IS ON THE MED LIST ABOVE) All of the medications requested were on the CURRENT MEDS list Did you check the Pharmacy information above?: YES Patient wants: 30 -day supply Is this a mail order prescription request ? NO If the refill is from a FAXED refill request what is the RX # listed on the fax? N/A Patients current insurance carrier is: [place] / [place] / Product Type: MEDICARE [id number] documented in this encounter Plan of Treatment Not on file documented as of this encounter Visit Diagnoses Not on filedocumented in this encounter Care Teams Design Quality Engineer Relationship Specialty Start Date End Date Grabiel Leonardo MD PCP - General Internal Medicine 12/11/18 06/01/20 China Reece PA-C [address] [place] [phone] PCP - General Internal Medicine 06/02/20 12/10/22 Bridgette Edward MD [address] [place] [phone] PCP - General Internal Medicine 12/11/22 documented as of this encounter
--- OUTSIDE RECORDS SUMMARY | 2025-01-26 17:06 | XMS_ITS | Encounter Summary ---
Author Organization [facility] Address [address] [place] [address] Care Team Providers Care Verifying Specialist Name Role Phone China Reece PA-C Primary Care Provider + Bridgette Edward MD Primary Care Provider [phone] Reason for Visit * Reason Comments E-prescribe Rx Request Encounter Details Date Type Department Care Team Description 10/01/2021 Refill Internal Medicine - [address], [address] [place] [address] China Reece PA-C [address] [place] [phone] E-prescribe Rx Request Social History Tobacco [...] have Coronavirus / COVID-19? No / Unsure 10/03/2021 10:55 AM EST documented as of this encounter Miscellaneous Notes * Telephone Encounter - China Reece PA-C - 10/08/2021 1:43 PM EST Refilled a month of Xarelto 20 mg daily, was supposed to have repeat ultrasound of his left leg to check for resolution of DVT. Please schedule, order placed. * Telephone Encounter - Deonna Lopez - 10/08/2021 1:24 PM EST BP Readings from Last 3 Encounters: 10/03/21 122/80 04/24/21 134/80 04/05/21 (!) 140/78 * Telephone Encounter - Aminata Frey - 10/08/2021 1:18 PM EST Flor 08/30/21 Nov 10/25/21 documented in this encounter Plan of Treatment Not on file documented as of this encounter Results * EXTREMITY VEINS STUDY, UNILATERAL (10/11/2021 1:21 PM EST) 10/11/2021 1:57 PM EST Impressions HÉCTOR JIANG OTHER EXTERNAL - 10/11/2021 2:01 PM EST IMPRESSION: Findings suggestive of ??chronic/residual deep vein thrombosis in the popliteal vein. ??Nonvisualization of the peroneal vein. Narrative HÉCTOR JIANG OTHER EXTERNAL - 10/11/2021 2:01 PM EST LEFT LOWER EXTREMITY VENOUS ULTRASOUND HISTORY: Deep vein thrombosis in the left femoral and popliteal veins. ??No prior studies or reports are available for ??comparison. COMMENT: There is partial compressibility and color filling of the popliteal vein. ??Peroneal vein was not visualized. ??The left common femoral, uppermost deep femoral, greater saphenous, femoral, gastrocnemius, posterior tibial veins were imaged, showing no filling defects or noncompressible segments. ??Doppler shows normal phasic flow and normal response to calf compression. ?? Procedure Note Elaine Sommers MD - 10/11/2021 LEFT LOWER EXTREMITY VENOUS ULTRASOUND HISTORY: Deep vein thrombosis in the left femoral and popliteal veins. Noprior studies or reports are available for comparison. COMMENT: There is partial compressibility and color filling of thepopliteal vein. Peroneal vein was not visualized. The left common femoral, uppermost deep femoral,greater saphenous, femoral, gastrocnemius, posterior tibial veins were imaged, showing nofilling defects or noncompressible segments. Doppler shows normal phasic flow and normalresponse to calf compression. IMPRESSION IMPRESSION: Findings suggestive of chronic/residual deep vein thrombosisin the popliteal vein. Nonvisualization of the peroneal vein. China Reece PA-C ULTRASOUND [place] OTHER EXTERNAL documented in this encounter Visit Diagnoses Diagnosis Acute embolism and thrombosis of left femoral vein (HCC) Acute embolism and thrombosis of left popliteal vein (HCC) Acute embolism and thrombosis of left femoral vein (HCC) Acute embolism and thrombosis of left popliteal vein (HCC) documented in this encounter Care Teams Verifying Specialist Relationship Specialty Start Date End Date China Reece PA-C [address] [place] [phone] PCP - General Internal Medicine 06/02/20 12/10/22 Bridgette Edward MD [address] [place] [phone] PCP - General Internal Medicine 12/11/22 documented as of this encounter
--- OUTSIDE RECORDS SUMMARY | 2025-01-26 17:06 | XMS_ITS | Encounter Summary ---
Author Organization [facility] Address [address] [place] [address] Care Team Providers Care Dishroom Attendant Name Role Phone Grabiel Leonardo MD Primary Care Provider [phone] China Reece PA-C Primary Care Provider + Bridgette Edward MD Primary Care Provider [phone] Reason for Visit * Reason Onset Date Comments Provider Call Back 03/26/2019 Encounter Details Date Type Department Care Team Description 03/26/2019 Telephone Internal Medicine - [address], [address] [place] [address] Grabiel Leonardo MD [address] [place] [address] Provider Call Back Social History Tobacco Use [...] encounter Miscellaneous Notes * Telephone Encounter - Emma Lopez M.A. - 03/26/2019 3:45 PM EDT Patient stated he has an appointment with the physiatry on April 20 and they told him to keep calling to see if someone cancel befored that day. He sent his apoligy to Dr. Leonardo he miss understood the DrJudit * Telephone Encounter - Grabiel Leonardo MD - 03/26/2019 3:32 PM EDT No prednisone. He's been referred to brand representative. * Telephone Encounter - Luisa Gee - 03/26/2019 2:24 PM EDT Patient calling - stating that he was asking for prednisone and the provider informed him that he would send something better Please review and call patient at [phone] (home) * Telephone Encounter - Grabiel Leonardo MD - 03/26/2019 2:20 PM EDT He is on nabumetone which is an NSAID All of them have side effects. he wants to continue same medication. * Telephone Encounter - Katty Clifford - 03/26/2019 11:12 AM EDT Caller requesting call back from provider: Is the caller the patient? YES If caller is not the patient, what is the callers name? N/A Callers relationship to patient? N/A If person calling is not the patient themselves, is there a verbal release in FYI or permanent comments for this person: YES Reason for call back: Patient was seen 03/25/2019 discussed trying an alternative to nabumetone (RELAFEN) 750 MG tablet medicine for back pain with Dr. Leonardo, same Rx was sent to pharmacy Caller offered to speak with the nurse for assistance: YES Response: Patient offered to speak with nurse for assistance and patient agreed. Message forwarded to nurse. documented in this encounter Plan of Treatment Not on file documented as of this encounter Visit Diagnoses Not on filedocumented in this encounter Care Teams Dishroom Attendant Relationship Specialty Start Date End Date Grabiel Leonardo MD PCP - General Internal Medicine 12/11/18 06/01/20 China Reece PA-C [address] [place] [phone] PCP - General Internal Medicine 06/02/20 12/10/22 Bridgette Edward MD [address] [place] [phone] PCP - General Internal Medicine 12/11/22 documented as of this encounter
--- OUTSIDE RECORDS SUMMARY | 2025-01-26 17:06 | XMS_ITS | Encounter Summary ---
Author Organization [facility] Address [address] [place] [address] Care Team Providers Care Core Winder Name Role Phone China Reece PA-C Primary Care Provider + Bridgette Edward MD Primary Care Provider [phone] Reason for Visit * Reason Comments E-prescribe Rx Request Encounter Details Date Type Department Care Team Description 09/11/2022 Refill Internal Medicine - [address], [address] [place] [address] China Reece PA-C [address] [place] [phone] E-prescribe Rx Request Social History Tobacco [...] suspected to have Coronavirus/COVID-19? No / Unsure 08/19/2022 12:39 PM EDT documented as of this encounter Miscellaneous Notes * Telephone Encounter - Diony Martin - 09/11/2022 2:29 PM EST Flor 08/19/2022 Nov 11/05/2022 * Telephone Encounter - Gail Mccall - 09/11/2022 11:31 AM EST Last ordered: 5 months ago by China Reece PA-C Last refill: 07/01/2022 Last ordered: 1 month ago by China Reece PA-C for tizanidine refusing because tizanidine (ZANAFLEX) 4 MG tablet 60 Tablet 2 08/05/2022 Pending audrey BP please send tizanidine if you believe a refill may be needed BP Readings from Last 3 Encounters: 08/19/22 (!) 160/90 08/05/22 (!) 148/72 04/08/22 132/80 documented in this encounter Plan of Treatment Not on file documented as of this encounter Visit Diagnoses Diagnosis Essential hypertension Unspecified essential hypertension Chronic bilateral low back pain with bilateral sciatica documented in this encounter Care Teams Core Winder Relationship Specialty Start Date End Date China Reece PA-C [address] [place] [phone] PCP - General Internal Medicine 06/02/20 12/10/22 Bridgette Edward MD [address] [place] [phone] PCP - General Internal Medicine 12/11/22 documented as of this encounter
--- OUTSIDE RECORDS SUMMARY | 2025-01-26 17:06 | XMS_ITS | Encounter Summary ---
Author Organization [facility] Address [address] [place] [address] Care Team Providers Care High Climber Name Role Phone Grabiel Leonardo MD Primary Care Provider [phone] China Reece PA-C Primary Care Provider + Bridgette Edward MD Primary Care Provider [phone] Encounter Details Date Type Department Care Team Description 12/06/2019 Telephone Internal Medicine - [address], [address] [place] [address] Grabiel Leonardo MD [address] [place] [address] Social History Tobacco Use Types Packs/Day Years [...] Telephone Encounter - Humaira Lopez M.A. - 12/06/2019 8:46 AM EST ----- Message from Grabiel Leonardo MD sent at 12/03/2019 3:02 PM EST ----- Labs are looking fine ,potassium is little low, increase fluid intake. Fruits like bananas ,oranges documented in this encounter Plan of Treatment Not on file documented as of this encounter Visit Diagnoses Not on filedocumented in this encounter Care Teams High Climber Relationship Specialty Start Date End Date Grabiel Leonardo MD PCP - General Internal Medicine 12/11/18 06/01/20 China Reece PA-C [address] [place] [phone] PCP - General Internal Medicine 06/02/20 12/10/22 Bridgette Edward MD [address] [place] [phone] PCP - General Internal Medicine 12/11/22 documented as of this encounter
--- OUTSIDE RECORDS SUMMARY | 2025-01-26 17:06 | XMS_ITS | Encounter Summary ---
Author Organization [facility] Address [address] [place] [address] Care Team Providers Care Lingo Cleaner Name Role Phone Grabiel Leonardo MD Primary Care Provider [phone] China Reece PA-C Primary Care Provider + Bridgette Edward MD Primary Care Provider [phone] Encounter Details Date Type Department Care Team Description 04/30/2019 Visual Associate Report Medical Records [address] [place] [address] Malissa Arora Social History Tobacco Use Types Packs/Day Years [...] on filedocumented in this encounter Care Teams Lingo Cleaner Relationship Specialty Start Date End Date Grabiel Leonardo MD PCP - General Internal Medicine 12/11/18 06/01/20 China Reece PA-C [address] [place] [phone] PCP - General Internal Medicine 06/02/20 12/10/22 Bridgette Edward MD [address] [place] [phone] PCP - General Internal Medicine 12/11/22 documented as of this encounter
--- OUTSIDE RECORDS SUMMARY | 2025-01-26 17:06 | XMS_ITS | Encounter Summary ---
Author Organization [facility] Address [address] [place] [address] Care Team Providers Care Water Regulator And Valve Repairer Name Role Phone Grabiel Leonardo MD Primary Care Provider [phone] China Reece PA-C Primary Care Provider + Bridgette Edward MD Primary Care Provider [phone] Reason for Visit * Reason Comments E-prescribe Rx Request MELOXICAM 7.5 MG TABLET Encounter Details Date Type Department Care Team Description 10/28/2019 Refill Adult Med - [place] [address] [place], [place] [phone] Grabiel Leonardo MD [address] [place], [place] [phone] E-prescribe Rx Request (MELOXICAM 7.5 MG TABLET) Social History Tobacco Use Types Packs/Day Years [...] Telephone Encounter - Lety Alaniz M.A. - 10/29/2019 12:14 PM EST Patient last seen by Dr. Edward 10/15/2019. Please refill. * Telephone Encounter - Xuan Moss - 10/29/2019 8:44 AM EST Patient would like script to be: E-PRESCRIBED/FAXED TO PHARMACY WHEN WAS THE PATIENT'S LAST APPOINTMENT IN ADULT MEDICINE? 06/04/[address] Leonardo and 10/15/[address] Edward WHEN WAS THE LAST TIME THE PATIENT SAW THEIR PCP? Same as above Does patient have an upcoming appointment? No-unable to reach left [facility] to call for appointment due to refill request. (THE MEDICATION REQUESTED IS ON THE MED [...] / [place] / Product Type: MEDICARE [id number] documented in this encounter Plan of Treatment Not on file documented as of this encounter Visit Diagnoses Not on filedocumented in this encounter Care Teams Water Regulator And Valve Repairer Relationship Specialty Start Date End Date Grabiel Leonardo MD PCP - General Internal Medicine 12/11/18 06/01/20 China Reece PA-C [address] [place] [phone] PCP - General Internal Medicine 06/02/20 12/10/22 Bridgette Edward MD [address] [place] [phone] PCP - General Internal Medicine 12/11/22 documented as of this encounter
--- OUTSIDE RECORDS SUMMARY | 2025-01-26 17:06 | XMS_ITS | Encounter Summary ---
Author Organization [facility] Address [address] [place] [address] Care Team Providers Care Senior Business Consultant Name Role Phone China Reece PA-C Primary Care Provider + Bridgette Edward MD Primary Care Provider [phone] Encounter Details Date Type Department Care Team Description 05/28/2021 [facility] Medical Records [address] [place] [address] [place] Social History Tobacco Use Types Packs/Day Years [...] on filedocumented in this encounter Care Teams Senior Business Consultant Relationship Specialty Start Date End Date China Reece PA-C [address] [place] [phone] PCP - General Internal Medicine 06/02/20 12/10/22 Bridgette Edward MD [address] [place] [phone] PCP - General Internal Medicine 12/11/22 documented as of this encounter
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
--- OUTSIDE RECORDS SUMMARY | 2025-01-26 17:06 | XMS_ITS | Encounter Summary ---
Author Organization [facility] Address [address] [place] [address] Care Team Providers Care Drywall Hanger Framer Name Role Phone Grabiel Leonardo MD Primary Care Provider [phone] China Reece PA-C Primary Care Provider + Bridgette Edward MD Primary Care Provider [phone] Reason for Visit * Reason Onset Date Comments TEST RESULTS 02/21/2020 Labs Encounter Details Date Type Department Care Team Description 02/21/2020 Telephone Internal Medicine - [place] [address] [facility], [address] [place], [place] [phone] Bridgette Edward MD [address] [place] [phone] TEST RESULTS (Labs) Social History Tobacco Use Types Packs/Day Years [...] encounter Miscellaneous Notes * Telephone Encounter - Edwina Miller - 02/21/2020 11:40 AM EDT Inform patient: ANY URGENT OR ABNORMAL RESULTS WIILL RESULT IN A CALL BACK TO THE PATIENT BETI. Type of test: :Labs Date test was performed: 02/02/20 Where was the test performed: [address] [facility] [address], [place], [place] Who ordered this test?: Dr. Edward Is the doctor here today?: NO Can the message wait until the doctor returns?: YES IF PATIENT'S PCP IS NOT IN INSTRUCT PATIENT THAT THEY WILL RECEIVE A CALL BACK WHEN THE PCP IS IN THE OFFICE NEXT. documented in this encounter Plan of Treatment Not on file documented as of this encounter Visit Diagnoses Not on filedocumented in this encounter Care Teams Drywall Hanger Framer Relationship Specialty Start Date End Date Grabiel Leonardo MD PCP - General Internal Medicine 12/11/18 06/01/20 China Reece PA-C [address] [place] [phone] PCP - General Internal Medicine 06/02/20 12/10/22 Bridgette Edward MD [address] [place] [phone] PCP - General Internal Medicine 12/11/22 documented as of this encounter
--- OUTSIDE RECORDS SUMMARY | 2025-01-26 17:06 | XMS_ITS | Encounter Summary ---
Author Organization [facility] Address [address] [place] [address] Care Team Providers Care Sack Maker Name Role Phone China Reece PA-C Primary Care Provider + Bridgette Edward MD Primary Care Provider [phone] Encounter Details Date Type Department Care Team Description 06/22/2021 [facility] Medical Records [address] [place] [address] Social History Tobacco Use Types Packs/Day Years [...] on filedocumented in this encounter Care Teams Sack Maker Relationship Specialty Start Date End Date China Reece PA-C [address] [place] [phone] PCP - General Internal Medicine 06/02/20 12/10/22 Bridgette Edward MD [address] [place] [phone] PCP - General Internal Medicine 12/11/22 documented as of this encounter
--- OUTSIDE RECORDS SUMMARY | 2025-01-26 17:06 | XMS_ITS | Encounter Summary ---
Author Organization [facility] Address [address] [place] [address] Care Team Providers Care Play Back Operator Name Role Phone Bridgette Edward MD Primary Care Provider [phone] Encounter Details Date Type Department Care Team Description 07/21/2024 Orders Only Medical Records [address] [place] [address] Elvin Dixon MD Social History Tobacco Use Types Packs/Day Years [...] on file documented as of this encounter Procedures Procedure Name Priority Date/Time Associated Diagnosis Comments OUTSIDE IMAGING Routine 07/20/2024 documented in this encounter Results * OUTSIDE IMAGING (07/20/2024) Elvin Dixon MD RADIOLOGY documented in this encounter Visit Diagnoses Not on filedocumented in this encounter Care Teams Play Back Operator Relationship Specialty Start Date End Date Bridgette Edward MD PCP - General Internal Medicine 12/11/22 documented as of this encounter
--- OUTSIDE RECORDS SUMMARY | 2025-01-26 17:06 | XMS_ITS | Encounter Summary ---
Author Organization [facility] Address [address] [place] [address] Care Team Providers Care Mechanical Operator Name Role Phone China Reece PA-C Primary Care Provider + Bridgette Edawrd MD Primary Care Provider [phone] Encounter Details Date Type Department Care Team Description 12/29/2020 Hospital Medical Records [address] [place] [address] Ludwin Tyson MD, PHD Social History Tobacco Use Types Packs/Day Years [...] have Coronavirus / COVID-19? No / Unsure 12/19/2020 2:27 PM EST documented as of this encounter Plan of Treatment Not on file documented as of this encounter Visit Diagnoses Not on filedocumented in this encounter Care Teams Mechanical Operator Relationship Specialty Start Date End Date China Reece PA-C [address] [place] [phone] PCP - General Internal Medicine 06/02/20 12/10/22 Bridgette Edward MD [address] [place] [phone] PCP - General Internal Medicine 12/11/22 documented as of this encounter
--- OUTSIDE RECORDS SUMMARY | 2025-01-26 17:06 | XMS_ITS | Encounter Summary ---
Author Organization [facility] Address [address] [place] [address] Care Team Providers Care Blood Bank Technologist Name Role Phone Grabiel Leonardo MD Primary Care Provider [phone] China Reece PA-C Primary Care Provider + Bridgette Edward MD Primary Care Provider [phone] Reason for Visit * Reason Onset Date Comments medication problems 02/21/2020 Encounter Details Date Type Department Care Team Description 02/21/2020 Telephone Internal Medicine - [address], [address] [place] [address] Grabiel Leonardo MD [address] [place] [address] medication problems Social History Tobacco Use Types Packs/Day Years [...] Telephone Encounter - Edwina Miller - 02/21/2020 11:36 AM EDT Who is calling? The patient Name of the medication Zantac What is the specific problem or interaction? Pharmacy is no longer carrying this medication. Can you please prescribe something else and send it to [place], [place]. Call the patient once something is sent. If the patient is having a problem with taking the med - how long has the problem been going on? N/A documented in this encounter Plan of Treatment Not on file documented as of this encounter Visit Diagnoses Not on filedocumented in this encounter Care Teams Blood Bank Technologist Relationship Specialty Start Date End Date Grabiel Leonardo MD PCP - General Internal Medicine 12/11/18 06/01/20 China Reece PA-C [address] [place] [phone] PCP - General Internal Medicine 06/02/20 12/10/22 Bridgette Edward MD [address] [place] [phone] PCP - General Internal Medicine 12/11/22 documented as of this encounter
--- OUTSIDE RECORDS SUMMARY | 2025-01-26 17:06 | XMS_ITS | Encounter Summary ---
Author Organization [facility] Address [address] [place] [address] Care Team Providers Care Pin Sorter And Bagger Name Role Phone China Reece PA-C Primary Care Provider + Bridgette Edward MD Primary Care Provider [phone] Reason for Visit * Reason Onset Date Comments refill request 10/25/2022 Encounter Details Date Type Department Care Team Description 10/25/2022 Telephone Internal Medicine - [address], [address] [place] [address] China Reece PA-C [address] [place] [phone] refill request Social History Tobacco Use [...] suspected to have Coronavirus/COVID-19? No / Unsure 10/07/2022 1:25 PM EST documented as of this encounter Miscellaneous Notes * Telephone Encounter - Shoaib Harley - 10/25/2022 3:23 PM EST Pt has been made aware of medication been sent to pharmnacy * Telephone Encounter - China Reece PA-C - 10/25/2022 11:23 AM EST Is he already out of this is I filled it 10/07/2022? * Telephone Encounter - Carmine Gonzalez M.A. - 10/25/2022 9:36 AM EST Fwd to pcp rx pended * Telephone Encounter - Diann Gan - 10/25/2022 9:31 AM EST [place] 10/07/22 NOV 11/05/22 documented in this encounter Plan of Treatment Not on file documented as of this encounter Visit Diagnoses Not on filedocumented in this encounter Care Teams Pin Sorter And Bagger Relationship Specialty Start Date End Date China Reece PA-C [address] [place] [phone] PCP - General Internal Medicine 06/02/20 12/10/22 Bridgette Edward MD [address] [place] [phone] PCP - General Internal Medicine 12/11/22 documented as of this encounter
--- OUTSIDE RECORDS SUMMARY | 2025-01-26 17:06 | XMS_ITS | Encounter Summary ---
Author Organization [facility] Address [address] [place] [address] Care Team Providers Care Felt Cutter Name Role Phone China Reece PA-C Primary Care Provider + Bridgette Edward MD Primary Care Provider [phone] Encounter Details Date Type Department Care Team Description 06/13/2021 [facility] Medical Records [address] [place] [address] Social History Tobacco Use Types Packs/Day Years [...] on filedocumented in this encounter Care Teams Felt Cutter Relationship Specialty Start Date End Date China Reece PA-C [address] [place] [phone] PCP - General Internal Medicine 06/02/20 12/10/22 Bridgette Edward MD [address] [place] [phone] PCP - General Internal Medicine 12/11/22 documented as of this encounter
--- OUTSIDE RECORDS SUMMARY | 2025-01-26 17:06 | XMS_ITS | Encounter Summary ---
Author Organization [facility] Address [address] [place] [address] Care Team Providers Care Resident Caregiver Name Role Phone China Reece PA-C Primary Care Provider + Bridgette Edward MD Primary Care Provider [phone] Encounter Details Date Type Department Care Team Description 01/25/2021 Job Training Supervisor Report Medical Records [address] [place] [address] Ludwin Tyson MD, PHD Social History Tobacco [...] have Coronavirus / COVID-19? No / Unsure 01/10/2021 3:17 PM EST documented as of this encounter Plan of Treatment Not on file documented as of this encounter Visit Diagnoses Not on filedocumented in this encounter Care Teams Resident Caregiver Relationship Specialty Start Date End Date China Reece PA-C [address] [place] [phone] PCP - General Internal Medicine 06/02/20 12/10/22 Bridgette Edward MD [address] [place] [phone] PCP - General Internal Medicine 12/11/22 documented as of this encounter
--- OUTSIDE RECORDS SUMMARY | 2025-01-26 17:06 | XMS_ITS | Encounter Summary ---
Author Organization [facility] Address [address] [place] [address] Care Team Providers Care Mobility Manager Name Role Phone China Reece PA-C Primary Care Provider + Bridgette Edward MD Primary Care Provider [phone] Encounter Details Date Type Department Care Team Description 09/10/2021 Service Coordinator Elderly Facility Report Medical Records [address] [place] [address] Jimmy Toribio DO Social History Tobacco Use Types Packs/Day Years [...] on filedocumented in this encounter Care Teams Mobility Manager Relationship Specialty Start Date End Date China Reece PA-C [address] [place] [phone] PCP - General Internal Medicine 06/02/20 12/10/22 Bridgette Edward MD [address] [place] [phone] PCP - General Internal Medicine 12/11/22 documented as of this encounter
--- OUTSIDE RECORDS SUMMARY | 2025-01-26 17:06 | XMS_ITS | Encounter Summary ---
Author Organization [facility] Address [address] [place] [address] Care Team Providers Care Plant Chief Name Role Phone China Reece PA-C Primary Care Provider + Bridgette Edward MD Primary Care Provider [phone] Reason for Visit * Reason Onset Date Comments refill request 07/02/2022 Encounter Details Date Type Department Care Team Description 07/02/2022 Refill Internal Medicine - [address], [address] [place] [address] China Reece PA-C [address] [place] [phone] refill request Social History Tobacco Use [...] suspected to have Coronavirus/COVID-19? No / Unsure 06/06/2022 10:14 AM EDT documented as of this encounter Miscellaneous Notes * Telephone Encounter - China Reece PA-C - 07/02/2022 4:35 PM EDT Diclofenac gel refilled. * Telephone Encounter - Gail Mccall - 07/02/2022 3:00 PM EDT Would you be willing to restart script after being d/c? * Telephone Encounter - Aminata Frey - 07/02/2022 9:54 AM EDT Patient requesting refill for: Diclofenac Sodium 1 % Gel (Discontinued) 100 g 1 04/18/2021 01/31/2022 Sig - Route: Apply 2 g topically 4 times daily as needed (left elbow pain). - Apply externally Flor 04/08/22 Nov 08/05/22 documented in this encounter Plan of Treatment Not on file documented as of this encounter Visit Diagnoses Diagnosis Left elbow pain Pain in joint, upper arm documented in this encounter Care Teams Plant Chief Relationship Specialty Start Date End Date China Reece PA-C [address] [place] [phone] PCP - General Internal Medicine 06/02/20 12/10/22 Bridgette Edward MD [address] [place] [phone] PCP - General Internal Medicine 12/11/22 documented as of this encounter
--- OUTSIDE RECORDS SUMMARY | 2025-01-26 17:06 | XMS_ITS | Encounter Summary ---
Author Organization [facility] Address [address] [place] [address] Care Team Providers Care Material Cutter Name Role Phone Grabiel Leonardo MD Primary Care Provider [phone] China Reece PA-C Primary Care Provider + Bridgette Edward MD Primary Care Provider [phone] Encounter Details Date Type Department Care Team Description 04/27/2019 Business Trainer Report Medical Records [address] [place] [address] Avila Bains MD Social History Tobacco Use Types Packs/Day [...] on filedocumented in this encounter Care Teams Material Cutter Relationship Specialty Start Date End Date Grabiel Leonardo MD PCP - General Internal Medicine 12/11/18 06/01/20 China Reece PA-C [address] [place] [phone] PCP - General Internal Medicine 06/02/20 12/10/22 Bridgette Edward MD [address] [place] [phone] PCP - General Internal Medicine 12/11/22 documented as of this encounter
--- OUTSIDE RECORDS SUMMARY | 2025-01-26 17:06 | XMS_ITS | Encounter Summary ---
Author Organization [facility] Address [address] [place] [address] Care Team Providers Care Oil Heat Technician Name Role Phone Grabiel Leonardo MD Primary Care Provider [phone] China Reece PA-C Primary Care Provider + Bridgette Edward MD Primary Care Provider [phone] Encounter Details Date Type Department Care Team Description 07/23/2019 Walk In Clinic Visit Medical Records [address] [place] [address] Social History Tobacco Use Types Packs/Day Years [...] on filedocumented in this encounter Care Teams Oil Heat Technician Relationship Specialty Start Date End Date Grabiel Leonardo MD PCP - General Internal Medicine 12/11/18 06/01/20 China Reece PA-C [address] [place] [phone] PCP - General Internal Medicine 06/02/20 12/10/22 Bridgette Edward MD [address] [place] [phone] PCP - General Internal Medicine 12/11/22 documented as of this encounter
--- OUTSIDE RECORDS SUMMARY | 2025-01-26 17:06 | XMS_ITS | Encounter Summary ---
Author Organization [facility] Address [address] [place] [address] Care Team Providers Care Founder Name Role Phone China Reece PA-C Primary Care Provider + Bridgette Edward MD Primary Care Provider [phone] Reason for Referral * Non ELIZABETH (Routine) - Authorized/Booked Specialty Diagnoses / Procedures Referred By Lorenza villeda Referred To Contact Physical Therapy Procedures REFERRAL TO PHYSICAL THERAPY China Reece PA-C [address] [place] [phone] External Phys Thrpy Referral ID Status Reason Start Date Expiration Date V isits Requested Visits Authorized [id number] Authorized/B ooked 08/10/2021 1 1 * Non ELIZABETH (Routine) - Authorized/Booked Specialty Diagnoses / Procedures Referred By Lorenza villeda Referred To Contact Physical Therapy Procedures REFERRAL TO PHYSICAL THERAPY China Reece PA-C [address] [place] [phone] External Phys Thrpy Referral ID Status Reason Start Date Expiration Date V isits Requested Visits Authorized [id number] Authorized/B ooked 08/10/2021 1 1 Reason for Visit * Reason Onset Date Comments Sand Sifter Feedback 08/10/2021 PT Encounter Details Date Type Department Care Team Description 08/10/2021 Telephone Pulmonology - [address] [place] [address] China Reece PA-C [address] [place] [phone] Sand Sifter Feedback (PT) Social History Tobacco Use Types Packs/Day Years [...] encounter Miscellaneous Notes * Telephone Encounter - Nia Doty - 08/10/2021 4:14 PM EDT Thank you so much I truly appreciate it. * Telephone Encounter - China Reece PA-C - 08/10/2021 4:07 PM EDT PT referral signed. Thank you. * Telephone Encounter - Nia Doty - 08/10/2021 1:34 PM EDT Please review this patients new referral request. The referral has been pended. Please complete thefollowing: If approved> sign order If denied>please give instructions and route to your practice nursing pool. Practice nurse should inform referrals and the patient if denied. * Telephone Encounter - Darshana Kathleen RN - 08/10/2021 12:49 PM EDT Referral placed for outpatient PT at [facility]. * Telephone Encounter - China Reece PA-C - 08/10/2021 11:41 AM EDT PT referral placed. Thank you. * Telephone Encounter - Darshana Kathleen RN - 08/10/2021 10:32 AM EDT Please read and advise. [facility] is [facility] patient, but the patient would like to continue PT for outpatient at [facility] for his back pain. Can you write out the referral? * Telephone Encounter - Jade Richards - 08/10/2021 10:30 AM EDT [facility] calling back * Telephone Encounter - Darshana Kathleen RN - 08/10/2021 9:47 AM EDT I called and left a message for [facility] at the number provided to call the office back. * Telephone Encounter - Jolynn Levin - 08/10/2021 9:16 AM EDT [facility] CALL Which [facility] office is calling? [facility] Full name of caller: delmy Nolan The caller is A Physical Therapist Is the caller at the patients home?: NO Reason for call: Patient its has been discharge. Patient need referral for out patient to [facility] for Physical therapy Does caller need an urgent call back? NO Was CONTACT Telephone # obtained above?: Yes Fax #: documented in this encounter Plan of Treatment Not on file documented as of this encounter Visit Diagnoses Not on filedocumented in this encounter Care Teams Founder Relationship Specialty Start Date End Date China Reece PA-C [address] [place] [phone] PCP - General Internal Medicine 06/02/20 12/10/22 Bridgette Edward MD [address] [place] [phone] PCP - General Internal Medicine 12/11/22 documented as of this encounter
--- OUTSIDE RECORDS SUMMARY | 2025-01-26 17:06 | XMS_ITS | Encounter Summary ---
Author Organization [facility] Address [address] [place] [address] Care Team Providers Care Harvesting Contractor Name Role Phone Grabiel Leonardo MD Primary Care Provider [phone] China Reece PA-C Primary Care Provider + Bridgette Edward MD Primary Care Provider [phone] Encounter Details Date Type Department Care Team Description 01/04/2020 Trimmer Press Clippings Report Medical Records [address] [place] [address] Abstract, Provider Social History Tobacco Use Types [...] on filedocumented in this encounter Care Teams Harvesting Contractor Relationship Specialty Start Date End Date Grabiel Leonardo MD PCP - General Internal Medicine 12/11/18 06/01/20 China Reece PA-C [address] [place] [phone] PCP - General Internal Medicine 06/02/20 12/10/22 Bridgette Edward MD [address] [place] [phone] PCP - General Internal Medicine 12/11/22 documented as of this encounter
--- OUTSIDE RECORDS SUMMARY | 2025-01-26 17:06 | XMS_ITS | Encounter Summary ---
Author Organization [facility] Address [address] [place] [address] Care Team Providers Care Submarine Element Coordinator Name Role Phone Bridgette Edward MD Primary Care Provider [phone] Reason for Visit * Therapy (Routine) - Authorized Specialty Diagnoses / Procedures Referred By Lorenza villeda Referred To Contact Physical Therapy Diagnoses Back pain Srini Jenkins MD [address] [facility] [address] [place] [address] Phone: tel: fax: [address] [phone] Phone: tel: fax: Referral ID Status Reason Start Date Expiration Date Visits Requested Visits Authorized [id number] Authorized Specialty Services Required 09/07/2024 09/07/2025 20 6 Encounter Details Date Type Department Care Team (Late st Contact Info) Description 12/28/2024 10:30 AM EST Treatment [address] [address] Lowell Costa, WATER QUALITY ANALYST Bilateral hip pain (Primary Dx) Social History [...] Costa PTA - 12/28/2024 10:30 AM EST [facility] - Outpatient PHYSICAL THERAPY DAILY TREATMENT NOTE [...] Patient Identified by: Lowell Costa PTA Language: Afghan Medications: Current Outpatient Medications on File Prior [...] Description 02/24/2025 11:30 AM EDT Ancillary Procedure [facility] [address] [place] [address] 03/29/2025 12:00 PM EDT Office Visit Internal Medicine - [place] [address] [facility] [address] [facility] [address] [place] [address] Bridgette Edward MD [address] [facility] [address] [place] [address] 05/05/2025 2:00 PM EDT Office Visit Bariatric Surgery - [place] [address] [facility] [address] [place] [address] Robert Mota MD [address] [facility] [address] [place] [address] documented as of this encounter Goals Goal [...] PM EST) No Rosalva Jennings PT Note: Cutting And Boning Supervisor Goals 1. Patient will be independent with home exercise program to maintain therapeutic gains.- NOT MET 2. Patient will be able to walk with minimal to no pain.- PARTIALLY MET 3. Patient will be able to turn while standing or walking with minimal to no pain- NOT MET Halfway Goals will be achieved in 8-12 weeks. documented as of this encounter Visit Diagnoses Diagnosis Bilateral hip pain- Primary Pain in joint, pelvic region and thigh documented in this encounter Care Teams Submarine Element Coordinator Relationship Specialty Start Date End Date Bridgette Edward MD [address] [place] [phone] PCP - General 12/11/22 documented as of this encounter
--- OUTSIDE RECORDS SUMMARY | 2025-01-26 17:06 | XMS_ITS | Encounter Summary ---
Author Organization [facility] Address [address] [place] [address] Care Team Providers Care Oil Burner Journeyman Name Role Phone Bridgette Edward MD Primary Care Provider [phone] Encounter Details Date Type Department Care Team Description 10/29/2023 Acoustical Material Worker Report Medical Records [address] [place] [address] Christiano Ramirez MD Social History Tobacco Use Types Packs/Day [...] filedocumented in this encounter Care Teams Oil Burner Journeyman Relationship Specialty Start Date End Date Bridgette Edward MD PCP - General Internal Medicine 12/11/22 documented as of this encounter
--- OUTSIDE RECORDS SUMMARY | 2025-01-26 17:06 | XMS_ITS | Encounter Summary ---
Author Organization [facility] Address [address] [place] [address] Care Team Providers Care Databases Computer Consultant Name Role Phone China Reece PA-C Primary Care Provider + Bridgette Edward MD Primary Care Provider [phone] Reason for Visit * Reason Comments E-prescribe Rx Request Encounter Details Date Type Department Care Team Description 01/07/2022 Refill Internal Medicine - [address], [address] [place] [address] China Reece PA-C [address] [place] [phone] E-prescribe Rx Request Social History Tobacco [...] have Coronavirus / COVID-19? No / Unsure 12/14/2021 3:03 PM EST documented as of this encounter Miscellaneous Notes * Telephone Encounter - Loni Anaya L.P.N. - 01/09/2022 4:03 PM EST Refill xarelto 20 mg 1 tab daily Last refill 11/28/2021 #30 1 refill Lab Results Component Value Date WBC 10.9 07/07/2020 WBC 7.3 02/02/2020 WBC 6.5 12/03/2019 WBC 11.4 05/10/2019 HGB 15.7 07/07/2020 HGB 14.6 02/02/2020 HGB 14.8 12/03/2019 HGB 15.7 05/10/2019 HCT 47.0 07/07/2020 HCT 43.6 02/02/2020 HCT 44.4 12/03/2019 HCT 46.5 05/10/2019 MCV 99.8 07/07/2020 MCV 98.0 02/02/2020 MCV 96.7 12/03/2019 MCV 98.3 05/10/2019 PLTCT 213 07/07/2020 PLTCT 135 02/02/2020 PLTCT 156 12/03/2019 PLTCT 161 05/10/2019 * Telephone Encounter - Deb Garcia - 01/09/2022 2:54 PM EST Flor 12/14/21 Nov 03/21/22 documented in this encounter Plan of Treatment Not on file documented as of this encounter Visit Diagnoses Diagnosis 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
--- OUTSIDE RECORDS SUMMARY | 2025-01-26 17:06 | XMS_ITS | Clinical Summary ---
Author Organization [facility] Address [address] [place] [address] Care Team Providers Care Geriatric Physician Name Role Phone Unavailable Primary Care Provider [...] (six) hours as needed. 0 Active Benadryl jmbt-Ksibzv-Nxbzigpk- Lidocaine Visc mouth wash 1:1:1:1 Swish and [...]
--- OUTSIDE RECORDS SUMMARY | 2025-01-26 17:06 | XMS_ITS | Encounter Summary ---
Author Organization [facility] Address [address] [place] [address] Care Team Providers Care Bark Tanner Name Role Phone Grabiel Leonardo MD Primary Care Provider [phone] China Reece PA-C Primary Care Provider + Bridgette Edward MD Primary Care Provider [phone] Reason for Visit * Reason Comments E-prescribe Rx Request Encounter Details Date Type Department Care Team Description 12/03/2019 Refill Internal Medicine - [address], [address] [place] [address] Grabiel Leonardo MD [address] [place] [address] E-prescribe Rx Request Social History Tobacco Use [...] encounter Miscellaneous Notes * Telephone Encounter - Kell Waterman M.A. - 12/03/2019 4:05 PM EST BP Readings from Last 3 Encounters: 12/03/19 132/76 11/25/19 (!) 140/70 10/22/19 120/70 * Telephone Encounter - Xuan Moss - 12/03/2019 3:56 PM EST Patient would like script to be: E-PRESCRIBED/FAXED TO PHARMACY WHEN WAS THE PATIENT'S LAST APPOINTMENT IN ADULT MEDICINE? 12/03/2019 WHEN WAS THE LAST TIME THE PATIENT SAW THEIR PCP? Same as above Does patient have an upcoming appointment? Yes 02/28/2020 (THE MEDICATION REQUESTED IS ON THE MED [...] / Plan: [place] / Product Type: MEDICARE [id number] documented in this encounter Plan of Treatment Not on file documented as of this encounter Visit Diagnoses Not on filedocumented in this encounter Care Teams Bark Tanner Relationship Specialty Start Date End Date Grabiel Leonardo MD PCP - General Internal Medicine 12/11/18 06/01/20 China Reece PA-C [address] [place] [phone] PCP - General Internal Medicine 06/02/20 12/10/22 Bridgette Edward MD [address] [place] [phone] PCP - General Internal Medicine 12/11/22 documented as of this encounter
--- OUTSIDE RECORDS SUMMARY | 2025-01-26 17:06 | XMS_ITS | Encounter Summary ---
Author Organization [facility] Address [address] [place] [address] Care Team Providers Care Synthetic Resin Operator Name Role Phone China Reece PA-C Primary Care Provider + Bridgette Edward MD Primary Care Provider [phone] Reason for Visit * Reason Onset Date Comments refill request 01/07/2022 Encounter Details Date Type Department Care Team Description 01/07/2022 Refill Pulmonology - [place] [address] [facility] [address] [place] [phone] China Reece PA-C [address] [place] [address] refill request Social History Tobacco [...] encounter Miscellaneous Notes * Telephone Encounter - Camille Martin - 01/07/2022 11:41 AM EST BP Readings from Last 3 Encounters: 12/14/21 120/82 10/03/21 122/80 04/24/21 134/80 * Telephone Encounter - Martha Yoo - 01/07/2022 11:32 AM EST [place] 12/14/21 NOV 03/21/22 documented in this encounter Plan of Treatment Not on file documented as of this encounter Visit Diagnoses Not on filedocumented in this encounter Care Teams Synthetic Resin Operator Relationship Specialty Start Date End Date China Reece PA-C [address] [place] [phone] PCP - General Internal Medicine 06/02/20 12/10/22 Bridgette Edward MD [address] [place] [phone] PCP - General Internal Medicine 12/11/22 documented as of this encounter
--- OUTSIDE RECORDS SUMMARY | 2025-01-26 17:06 | XMS_ITS | Encounter Summary ---
Author Organization [facility] Address [address] [place] [address] Care Team Providers Care Cloth Desizing Range Operator Chief Name Role Phone China Reece PA-C Primary Care Provider + Bridgette Edward MD Primary Care Provider Reason for Referral * EXTERNAL (Routine) - Authorized/Booked Specialty Diagnoses / Procedures Referred By Lorenza villeda Referred To Contact Dermatology Procedures REFERRAL TO DERMATOLOGY China Reece PA-C [address] [place] [phone] Carlos Alberto Jacobs [address] [place] [address] [address] [place] [address] Referral ID Status Reason Start Date Expiration Date V isits Requested Visits Authorized [id number] Authorized/B ooked 08/29/2022 11/30/2022 1 1 Reason for Visit * Reason Onset Date Comments Mole Check 08/28/2022 Encounter Details Date Type Department Care Team Description 08/28/2022 Telephone Internal Medicine - [place] [address] [facility], [address] [place] [address] China Reece PA-C [address] [place] [address] Mole Check Social History Tobacco Use Types Packs/Day Years [...] Recorded In the last 10 days, have endy portillo been in contact with someone who was confirmed or suspected to have Coronavirus/COVID-19? No / Unsure 08/19/2022 12:39 PM EDT documented as of this encounter Miscellaneous Notes * Telephone Encounter - Shoaib Harley - 08/30/2022 8:54 AM EDT Pt has been informed of referall been placed * Telephone Encounter - China Reece PA-C - 08/29/2022 4:41 PM EDT Dermatology referral placed. Thank you. * Telephone Encounter - Jessica Maria - 08/29/2022 10:[address] Edward patient is requesting a new referral to be placed with a new dematologist. Patient states he has a mole on the left arm that bleeds often. * Telephone Encounter - Nadine Rincon - 08/28/2022 3:42 PM EDT Patient would like a referral to a fuel dock attendant (not to same doctor he saw before-asks for someonedifferent). Patient has a mole on left arm and it bleeds often. Patient has to put a bandaid on it for 15 to 20 minutes for the mole to stop bleeding. The mole is in an ackward spot on arm where clothing touches and irritates it. Please contact patient regarding a referral. documented in this encounter Plan of Treatment Not on file documented as of this encounter Visit Diagnoses Not on filedocumented in this encounter Care Teams Cloth Desizing Range Operator Chief Relationship Specialty Start Date End Date China Reece PA-C [address] [place] [phone] PCP - General Internal Medicine 06/02/20 12/10/22 Bridgette Edward MD [address] [place] [address] PCP - General Internal Medicine 12/11/22 documented as of this encounter
--- OUTSIDE RECORDS SUMMARY | 2025-01-26 17:06 | XMS_ITS | Encounter Summary ---
Author Organization [facility] Address [address] [place] [address] Care Team Providers Care Senior Technical Support Analyst Name Role Phone Grabiel Leonardo MD Primary Care Provider [phone] China Reece PA-C Primary Care Provider + Bridgette Edward MD Primary Care Provider [phone] Encounter Details Date Type Department Care Team Description 05/11/2019 Orders Only Medical Records [address] [place] [address] Abstract, Provider Social History Tobacco Use Types [...] Name Priority Date/Time Associated Diagnosis Comments OUTSIDE PLAIN FILM Routine 05/10/2019 documented in this encounter Results * OUTSIDE PLAIN FILM (05/10/2019) Naveen Alex PA-C RADIOLOGY documented in this encounter Visit Diagnoses Not on filedocumented in this encounter Care Teams Senior Technical Support Analyst Relationship Specialty Start Date End Date Grabiel Leonardo MD PCP - General Internal Medicine 12/11/18 06/01/20 China Reece PA-C [address] [place] [address] PCP - General Internal Medicine 06/02/20 12/10/22 Bridgette Edward MD [address] [place] [phone] PCP - General Internal Medicine 12/11/22 documented as of this encounter
--- OUTSIDE RECORDS SUMMARY | 2025-01-26 17:06 | XMS_ITS | Encounter Summary ---
Author Organization [facility] Address [address] [place] [address] Care Team Providers Care Roofing Applicator Name Role Phone Grabiel Leonardo MD Primary Care Provider [phone] China Reece PA-C Primary Care Provider + Bridgette Edward MD Primary Care Provider [phone] Encounter Details Date Type Department Care Team Description 09/20/2019 Orders Only Internal Medicine - [address], [address] [place] [address] Grabiel Leonardo MD [address] [place] [address] Social History Tobacco Use Types Packs/Day [...] on filedocumented in this encounter Care Teams Roofing Applicator Relationship Specialty Start Date End Date Grabiel Leonardo MD PCP - General Internal Medicine 12/11/18 06/01/20 China Reece PA-C [address] [place] [phone] PCP - General Internal Medicine 06/02/20 12/10/22 Bridgette Edward MD [address] [place] [phone] PCP - General Internal Medicine 12/11/22 documented as of this encounter
--- OUTSIDE RECORDS SUMMARY | 2025-01-26 17:06 | XMS_ITS | Encounter Summary ---
Author Organization [facility] Address [address] [place] [address] Care Team Providers Care Paver Operator Name Role Phone China Reece PA-C Primary Care Provider + Bridgette Edward MD Primary Care Provider [phone] Encounter Details Date Type Department Care Team Description 08/07/2021 SCAN Medical Records [address] [place] [address] Abstract, Provider Social History Tobacco Use Types [...] on filedocumented in this encounter Care Teams Paver Operator Relationship Specialty Start Date End Date China Reece PA-C [address] [place] [phone] PCP - General Internal Medicine 06/02/20 12/10/22 Bridgette Edward MD [address] [place] [phone] PCP - General Internal Medicine 12/11/22 documented as of this encounter
--- OUTSIDE RECORDS SUMMARY | 2025-01-26 17:07 | XMS_ITS | Encounter Summary ---
Author Organization [facility] Address [address] [place] [address] Care Team Providers Care Coin Machine Operator Name Role Phone China Reece PA-C Primary Care Provider + Bridgette Edward MD Primary Care Provider [phone] Reason for Visit * Reason Onset Date Comments [facility] Call 07/03/2021 Encounter Details Date Type Department Care Team Description 07/03/2021 Telephone Adult Medicine [address] [address] China Reece PA-C [address] [place] [phone] [facility] Call Social History Tobacco Use Types Packs/Day Years [...] Telephone Encounter - China Reece PA-C - 07/03/2021 4:24 PM EDT Noted. Thank you. * Telephone Encounter - Darshana Kathleen RN - 07/03/2021 1:17 PM EDT FYI, verbal orders given. * Telephone Encounter - Barbie Talbert - 07/03/2021 12:37 PM EDT [facility] CALL Which [facility] office is calling? [place] Full name of caller: [email or web address] The caller is A Physical Therapist Is the caller at the patients home?: NO Reason for call: Patient had physical therapy evaluation today. Looking for orders twice a week 4 weeks. Does caller need an urgent call back? NO Was CONTACT Telephone # obtained above?: YES Fax #: documented in this encounter Plan of Treatment Not on file documented as of this encounter Visit Diagnoses Not on filedocumented in this encounter Care Teams Coin Machine Operator Relationship Specialty Start Date End Date China Reece PA-C [address] [place] [phone] PCP - General Internal Medicine 06/02/20 12/10/22 Bridgette Edward MD [address] [place] [phone] PCP - General Internal Medicine 12/11/22 documented as of this encounter
--- OUTSIDE RECORDS SUMMARY | 2025-01-26 17:07 | XMS_ITS | Encounter Summary ---
Author Organization [facility] Address [address] [place] [address] Care Team Providers Care Manager Truck Name Role Phone Grabiel Leonardo MD Primary Care Provider [phone] China Reece PA-C Primary Care Provider + Bridgette Edward MD Primary Care Provider [phone] Encounter Details Date Type Department Care Team Description 11/17/2019 Orders Only Internal Medicine - [address], [address] [place] [address] Bridgette Edward MD [address] [place] [phone] Abnormal MRI, lumbar spine Social History Tobacco Use Types Packs/Day Years [...] Procedure Name Priority Date/Time Associated Diagnosis Comments PET SCAN/CT SCAN Routine 11/12/2019 Abnormal MRI, lumbar spine documented in this encounter Results * PET SCAN/CT SCAN (11/12/2019) Bridgette Edward MD PET SCANS documented in this encounter Visit Diagnoses Diagnosis Abnormal MRI, lumbar spine Other nonspecific (abnormal) findings on radiological and other examinations of body structure documented in this encounter Care Teams Manager Truck Relationship Specialty Start Date End Date Grabiel Leonardo MD PCP - General Internal Medicine 12/11/18 06/01/20 China Reece PA-C [address] [place] [phone] PCP - General Internal Medicine 06/02/20 12/10/22 Bridgette Edward MD [address] [place] [phone] PCP - General Internal Medicine 12/11/22 documented as of this encounter
--- OUTSIDE RECORDS SUMMARY | 2025-01-26 17:07 | XMS_ITS | Encounter Summary ---
Author Organization [facility] Address [address] [place] [address] Care Team Providers Care Php Magento Developer Name Role Phone Grabiel Leonardo MD Primary Care Provider [phone] China Reece PA-C Primary Care Provider + Bridgette Edward MD Primary Care Provider [phone] Encounter Details Date Type Department Care Team Description 11/02/2019 Telephone Physiatry - [place] [address] [place] [address] Denisse Cheng MD [address] [place] [address] [place], [place] [id number] Social History Tobacco Use Types Packs/Day Years [...] encounter Miscellaneous Notes * Telephone Encounter - Keila Thompson M.A. - 11/02/2019 10:50 AM EST Patient called informed. He will call our office to schedule f/u MRI when he receives appointment for MRI * Telephone Encounter - Keila Thompson M.A. - 11/02/2019 10:44 AM EST Left message for patient to return call. * Telephone Encounter - Keila Thompson M.A. - 11/02/2019 10:44 AM EST ----- Message from Denisse Cheng MD sent at 11/02/2019 10:28 AM EST ----- Called patient's number but no answer. Please call that we need to send him for lumbar MRI with contrast to better see findings. Then pls set him up for followup appointment with me after MRI contrast done. thanks Telephone Information: Work Phone Not on file. Mobile Not on file. documented in this encounter Plan of Treatment Not on file documented as of this encounter Visit Diagnoses Not on filedocumented in this encounter Care Teams Php Magento Developer Relationship Specialty Start Date End Date Grabiel Leonardo MD PCP - General Internal Medicine 12/11/18 06/01/20 China Reece PA-C [address] [place] [phone] PCP - General Internal Medicine 06/02/20 12/10/22 [place] [phone] PCP - General Internal Medicine 12/11/22 documented as of this encounter
== END 2025-01-26 14:12 | disposition home or self-care (01) ==
LOC: HO.RESP 14:11
PROVIDERS: PCP Internal Medicine; Visit Provider Internal Medicine Pulmonary Disease
DX: R06.09 Other forms of dyspnea (principal)
CPT/HCPCS: 94010; 94640; 94727; 94729; 99202

== ENCOUNTER 2025-04-29 08:37 | Outpatient (AMB) | payer MEDICARE, MEDICAID, SELFPAY ==
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
[2025-04-29 08:48] VITALS: BP 141/86; PULSE 65; O2SAT 99; BMI 32.7
--- OUTSIDE RECORDS SUMMARY | 2025-04-29 08:49 | XMS_ITS | Clinical Summary ---
Author Organization [facility] Address [address] [place] [address] Care Team Providers Care Auto Engine Mechanic Name Role Phone Unavailable Primary Care Provider [...] (six) hours as needed. 0 Active Benadryl ucny-Traqpa-Eysmfwuo- Lidocaine Visc mouth wash 1:1:1:1 Swish and [...] 64 07/06/2024 11:00 AM EDT Temperature 36.9 C (98.4 F) 07/06/2024 11:00 AM EDT Respiratory Rate - - Oxygen Saturation 95% [...] Vaccine (1 of 2) 2014 Influenza Vaccine (Season Ended) 2025 RSV Adult > 60+ Yrs or Pregn [...]
== END 2025-04-29 09:16 | disposition home or self-care (01) ==
LOC: HO.PMC 08:38
PROVIDERS: PCP Internal Medicine; Referring Provider Internal Medicine; Visit Provider Nurse Practitioner Family
DX: M25.551 Pain in right hip (principal); M25.552 Pain in left hip; M16.0 Bilateral primary osteoarthritis of hip; M54.50 Low back pain, unspecified; G89.29 Other chronic pain
CPT/HCPCS: 99204

== ENCOUNTER → 2025-04-29 08:37 | Outpatient (BNVA) | payer MEDICARE, MEDICAID, SELFPAY | PROVIDERS: PCP Internal Medicine; Referring Provider Internal Medicine; Visit Provider Nurse Practitioner Family | DX: M16.0 Bilateral primary osteoarthritis of hip (principal); M54.50 Low back pain, unspecified; G89.29 Other chronic pain | CPT/HCPCS: 99202 ==

== ENCOUNTER 2025-06-09 14:07 | Outpatient (AMB) | payer MEDICARE, MEDICAID, SELFPAY ==
--- OUTSIDE RECORDS SUMMARY | 2025-06-09 14:14 | XMS_ITS | Clinical Summary ---
Author Organization [facility] Address [address] [place] [address] Care Team Providers Care Box Tender Name Role Phone Unavailable Primary Care Provider [...] (six) hours as needed. 0 Active Benadryl zqel-Rdjnmi-Yewprzoi- Lidocaine Visc mouth wash 1:1:1:1 Swish and [...] (1 of 2) 2014 Influenza Vaccine (#1) 2025 RSV Adult > 60+ Yrs or [...]
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
--- OUTSIDE RECORDS SUMMARY | 2025-06-09 14:15 | XMS_ITS ---
Author Name [facility] Organization Unknown Encounters Encounter Type Encounter Reason Primary Diagnosis Location Date Ambulatory [facility] 10/04/2024 Care Team Organization Name Specialty Phone Email Start Date End Da te [facility] 02/26/2025 [facility] Bridgette Edward Primary Care 10/15/2023 06/21/20 [facility] [place] Reece Primary Care 09/10/2022 06/21/2024
--- OUTSIDE RECORDS SUMMARY | 2025-06-09 14:15 | XMS_ITS | Clinical Summary ---
Author Organization [facility] Address [address] [place] [address] Care Team Providers Care Electrician Technician Name Role Phone Unavailable Primary Care Provider [...] respiratory tract infection, unspecified type Place 1 [place] in both nostrils once daily 16 g [...] (BMI) of 36.0 to 36.9 in adult (CMS & [facility]) 10/07/2018 Abnormal EKG 09/07/2018 PVC (premature ventricular contraction) 09/07/20 18 Bradycardia 09/07/2018 Left shoulder pain 04/28/2018 Overview (07/02/2018): Saw [facility] on 06-29-18 for left shoulder [...] 60 02/16/2019 2:17 PM EDT Temperature 36.8 C (98.2 F) 02/16/2019 2:17 PM EDT Respiratory Rate 19 02/16/2019 2:17 PM EDT Oxygen Saturation 98% 10/07/2018 10:46 AM EST Inhaled Oxygen Concentration - - Weight 119.7 kg (264 lb) 02/16/2019 2:17 PM EDT Height 177.8 cm (5' 10 ) 01/13/2019 11:09 AM EDT Body Mass Index 37.88 01/13/2019 11:09 AM EDT Plan of Treatment Not on file Insurance [place] MEDICA[place] [facility]
[2025-06-09 14:19] VITALS: BP 148/78; PULSE 61; O2SAT 95; BMI 32.9
--- NOTE | 2025-06-09 14:19 | MHC.OFFVIS ---
Vital Signs 06/09/25 14:19 Height 5 ft 10 in Weight 229 lb BMI 32.9 BP 148/78 H Blood Pressure Location Rt brachial Position Sitting Pulse 61 Pulse Source Pulse Oximeter Pulse Oximetry (%) 95 Oxygen Delivery Method Room Air Intake Visit Reasons: Shortness of breath Microcomputer Technician Required: Yes Microcomputer Technician Name: Keila Hdez Allergies apixaban Allergy (Unknown, Verified 06/09/25 14:24) Diarrhea HPI HPI Shortness of breath: Details: 59-year-old gentleman, former minimal smoker in his 20s quit 1988, referred for evaluation of pulmonary component of dyspnea on exertion. Patient complains shortness of breath when he climbs up stairs, but also waking up at night feeling out of breath needing to sit up associated with worsening lower extremity edema. He denies chest pains. Patient is also undergoing cardiac workup. He denies family history of lung disease. He denies exposure to industrial dusts. After the last office visit patient completed his 2D echocardiogram that shows mild right atrial dilatation. He was tried on empiric diuretic with good response. He denies any recent exacerbations. His pulmonary function test is essentially normal. [facility] Medical History (Updated 04/29/25 @ 12:01 by SALVATORE Miller) Acute midline low back pain without sciatica Tinea pedis of both feet IBS (irritable bowel syndrome) Hypothyroidism GERD (gastroesophageal reflux disease) Insomnia Hypertension Chronic right-sided low back pain Depression Anxiety Numerous moles Left shoulder pain Bradycardia Allergic rhinitis Degenerative disc disease, cervical Cervical spinal stenosis Cervical radiculopathy Hematuria Bilateral hip joint arthritis Primary osteoarthritis of hips, bilateral Back pain Bilateral hip pain Surgical History Hx of decompressive lumbar laminectomy H/O knee surgery History of partial colectomy H/O abdominal surgery Social History Alcohol intake: never Patient Tobacco Use Status: Former Tobacco user Tobacco use type: Cigarette Review of Systems Const Denies daytime sleepiness, Denies excessive sweating, Denies fatigue, Denies fever(s), Denies lethargy, Denies malaise, Denies night sweats, Denies snoring and Denies weight loss Eyes Denies blurry vision and Denies itchy eyes ENT Denies nasal congestion, Denies post nasal drip, Denies sinus pain, Denies sinus pressure and Denies other ( Thrush) Card Denies chest pain, Denies pedal edema, Denies dyspnea, Denies orthopnea and Denies paroxysmal nocturnal dyspnea Resp Denies cough, Denies hemoptysis, Denies excessive phlegm production, Denies dyspnea, Denies snoring and Denies wheezing GI Denies abdominal pain and Denies heartburn Musc Denies myalgias, Denies arthralgias and Denies joint swelling Skin/Breast Denies rash Neuro Denies memory loss and Denies seizure-like activity Psych Denies abnormal sleep pattern, Denies anxiety and Denies memory loss Endo Denies excessive sweating, Denies fatigue and Denies heat intolerance Dinesh/Lymph Denies easy bruising Aller/Immun Denies itchy eyes, Denies seasonal rhinorrhea and Denies wheezing Physical Exam Vital Signs: Last Vital Signs Pulse 61 06/09/25 14:19 BP 148/78 H 06/09/25 14:19 Pulse Ox 95 06/09/25 14:19 Oxygen Delivery Method Room Air 06/09/25 14:19 BMI result Body Mass Index 32.9 Const General: no acute distress and alert Nutritional Appearance: not obese Orientation/consciousness: Other orientation findings ( oriented) HEENT Head: Yes atraumatic Eyes General: appearance normal, both eyes and all related structures Sclerae: sclerae normal EOM: EOMs intact bilaterally Neck Neck: Yes supple Lymphatic: no lymphadenopathy noted Resp Effort & Inspection: normal respiratory effort and no use of accessory muscles Auscultation: clear to auscultation bilaterally Cardio Rate: regular rate Rhythm: regular rhythm Heart sounds: no gallops, no murmurs and no rubs Skin General skin exam: other ( warm) Extrem General: No clubbing, No cyanosis and Yes edema (Trace bilateral) Assessment & Plan Assessment & Plan (1) Dyspnea on exertion: Code(s): R06.09 - Other forms of dyspnea Category: Medical (2) Orthopnea: Code(s): R06.01 - Orthopnea Category: Medical Plan Results of 2D echocardiogram and pulmonary function test reviewed and essentially normal. Patient with good response to empiric diuretic. Continue Lasix 40 mg daily. Medications: Refilled furosemide 40 mg PO QAM 30 tabs 6RF R06.09 - Other forms of dyspnea Coding Level of Care Code Est Pt Level 4 (05088) Diagnoses Dyspnea on exertion R06.09 Orthopnea R06.01
== END 2025-06-09 14:37 | disposition home or self-care (01) ==
LOC: HO.HPS 14:08
PROVIDERS: PCP Internal Medicine; Visit Provider Internal Medicine Pulmonary Disease
DX: R06.09 Other forms of dyspnea (principal); R06.01 Orthopnea
CPT/HCPCS: 99214

== ENCOUNTER → 2025-06-09 14:07 | Outpatient (BNVA) | payer MEDICARE, MEDICAID, SELFPAY | PROVIDERS: PCP Internal Medicine; Visit Provider Internal Medicine Pulmonary Disease | DX: R06.09 Other forms of dyspnea (principal); R06.01 Orthopnea | CPT/HCPCS: 99212 ==